=== PATIENT | female | born 1940 | race Caucasian/White ===

== ENCOUNTER → 2016-03-27 | Outpatient (REF) | payer MEDICARE ==
[~2016-03-27] MED LIST: ACET50TAOT PO; AMIT50TA PO; ASPI1TAB PO; AZIT500T2 PO; B-COTAB10 PO; CEFD1CAP8 PO; CITA40TA4 PO; FOLI800T PO; INSULANT SC; ISOS30TA4 PO; LASI40TA PO; MEST60TA PO; METF-415 PO; MIRA3350 PO; NORV5TAB PO; NOVO70IN SC; NOVOINJ12 SC; OMEP40CA2 PO; OXYB5TA PO; PRED50TA PO; SIMV20TA2 PO; VITA-122 PO; VITMTA PO; duoneb NEB
== END ==
LOC: M SMT 12:43
PROVIDERS: ATTEND Nurse Practitioner Family
DX: N20.0 Calculus of kidney (principal)
CPT/HCPCS: 51798; 81001; 87086; G0463

== ENCOUNTER 2017-05-23 12:40 | Inpatient (IN) | payer OTHER, MEDICARE ==
[2017-05-23 14:01] LABS: BASO % 0.2 % (0.0-1.0); EOS # 0.1 10^3/uL (0.0-0.50); EOS % 0.5 % (0.0-3.0); HEMATOCRIT 29.2 % (36.0-47.0); HEMOGLOBIN 7.4 g/dl (12.0-16.0); IMMATURE GRANULOCYTE % 1.1 % (0-3.0); LYMPH # 1.4 10^3/uL (1.5-4.5); LYMPH % 7.5 % (24.0-44.0); MEAN CORPUSCULAR HEMOGLOBIN 16.6 pg (27.0-33.0); MEAN CORPUSCULAR HGB CONC 25.3 g/dl (32.0-36.5); MEAN CORPUSCULAR VOLUME 65.3 fl (80.0-96.0); MONO # 1.3 10^3/uL (0.0-0.8); MONO % 6.7 % (0.0-5.0); NEUTROPHILS # 15.8 10^3/uL (1.8-7.7); PLATELET COUNT, AUTOMATED 552 10^3/uL (150-450); RED BLOOD COUNT 4.47 10^6/uL (4.00-5.40); RED CELL DISTRIBUTION WIDTH 19.2 % (11.5-14.5); WHITE BLOOD COUNT 18.9 10^3/uL (4.0-10.0)
[2017-05-23 14:12] LABS: INR 0.93; PROTHROMBIN TIME 12.5 SECONDS (12.4-14.5)
[2017-05-23 14:13] LABS: PARTIAL THROMBOPLASTIN TIME 23.5 SECONDS (26.8-37.9)
[2017-05-23 14:14] LABS: ALKALINE PHOSPHATASE 283 U/L (45-117); ALT/SGPT 53 U/L (12-78); ANION GAP 11 MEQ/L (8-16); AST/SGOT 28 U/L (7-37); BLOOD UREA NITROGEN 18 MG/DL (7-18); CARBON DIOXIDE LEVEL 27 MEQ/L (21-32); CHLORIDE LEVEL 96 MEQ/L (98-107); CPK CREATINE PHOSPHOKINASE 21 U/L (26-192); CREATININE FOR GFR 1.08 MG/DL (0.55-1.30); GLOMERULAR FILTRATION RATE 52.5 (>39); GLUCOSE, FASTING 389 MG/DL (70-100); SODIUM LEVEL 134 MEQ/L (136-145)
[2017-05-23 14:15] LABS: ALBUMIN 3.2 GM/DL (3.2-5.2); ALBUMIN/GLOBULIN RATIO 0.78 (1.00-1.93); BILIRUBIN,DIRECT 0.1 MG/DL (0.0-0.2); BILIRUBIN,TOTAL 0.4 MG/DL (0.2-1.0); CK-MB VALUE MASS 1.3 NG/ML (0.0-3.6); LIPASE 159 U/L (73-393); MB/CK RELATIVE INDEX 6.19 (< OR =4); TOTAL PROTEIN 7.3 GM/DL (6.4-8.2); TROPONIN I 0.09 NG/ML (< 0.10)
[2017-05-23 14:16] LABS: LACTIC ACID SEPSIS PROTOCOL 7.5 MMOL/L (0.4-2.0)
[2017-05-23 15:06] LABS: DIGOXIN LEVEL 0.6 NG/ML (0.5-2.0)
[2017-05-23] MEDS: NS 1,000 ML IV ×2 (15:14→22:35)
[2017-05-23] MEDS: GASTROGRAFIN SOLUTION 30ML PO ×2 (16:15→16:18)
[2017-05-23] MEDS ORDERED: ISOVUE-370 76% 100ML VIAL (Q9967) As Ordered (17:17)
[2017-05-23] MEDS: ATORVASTATIN 20 MG TAB PO (21:00)
[2017-05-23] MEDS ORDERED: ONDANSETRON 4 MG TAB (S0181) PO (23:45)
[2017-05-24 00:37] LABS: FERRITIN 16 NG/ML (8-252); IRON (FE) 13 UG/DL (50-170); PERCENT SATURATION 2.8 % (13.2-45.0); TOTAL IRON BINDING CAPACITY 465 UG/DL (250-450)
[2017-05-24 02:42] LABS: BEDSIDE GLUCOSE 385 MG/DL (83-110)
[2017-05-24] MEDS: LEVEMIR (INSULIN DETEMIR) 1 UNITS/0.01ML SC ×3 (02:46→20:27)
[2017-05-24] MEDS: GABAPENTIN 400 MG CAP PO ×3 (02:47→20:25)
[2017-05-24] MEDS: AMITRIPTYLINE 50 MG TAB PO ×2 (02:48→20:25)
[2017-05-24] MEDS: VITAMIN D 1,000 INTERNATIONAL UNITS TABLET PO ×2 (02:49→20:25)
[2017-05-24] MEDS: MULTIVITAMINS/MINERALS THERAP 1 TAB PO ×2 (02:49→20:25)
[2017-05-24] MEDS: HumaLOG INSULIN (NovoLOG) PER UNIT SC ×5 (03:12→20:27)
[2017-05-24 04:10] LABS: IMMEDIATE SPIN CROSSMATCH 1 2
[2017-05-24] MEDS: NS 1,000 ML IV ×4 (04:34→23:20)
[2017-05-24 08:07] LABS: HEMATOCRIT 34.7 % (36.0-47.0); MEAN CORPUSCULAR HEMOGLOBIN 19.2 pg (27.0-33.0); MEAN CORPUSCULAR VOLUME 68.8 fl (80.0-96.0); PLATELET COUNT, AUTOMATED 432 10^3/uL (150-450); RED CELL DISTRIBUTION WIDTH 22.6 % (11.5-14.5); RETICULOCYTE # 75.6 10^9/L (17-77); RETICULOCYTE % 1.5 % (0.5-1.5); WHITE BLOOD COUNT 13.2 10^3/uL (4.0-10.0)
[2017-05-24] MEDS: SENOKOT S TAB PO ×2 (08:11→20:25)
[2017-05-24] MEDS: DOCUSATE SODIUM 100 MG CAP PO (08:11)
[2017-05-24] MEDS: DULoxetine 30 MG CAP (CYMBALTA) PO (08:11)
[2017-05-24] MEDS: PANTOPRAZOLE 40MG TAB (PROTONIX) PO (08:11)
[2017-05-24 08:29] LABS: POSITIVE MORPH POS FLAG
[2017-05-24 08:31] LABS: HEMOGLOBIN 9.7 g/dl (12.0-16.0); RED BLOOD COUNT 5.04 10^6/uL (4.00-5.40)
[2017-05-24 08:32] LABS: REASON FOR REVIEW ANEMIA / RBC MORPH; SLIDE REVIEW Report; SOURCE PERIPHERAL SMEAR
[2017-05-24] MEDS ORDERED: FUROSEMIDE 40 MG TAB PO (09:00)
[2017-05-24] MEDS ORDERED: SPIRONOLACTONE 25 MG TAB PO (09:00)
[2017-05-24] MEDS: DIGOXIN 0.125 MG TAB PO (10:23)
[2017-05-24] MEDS: MIDODRINE 5 MG TAB PO ×3 (10:23→18:02)
[2017-05-24] MEDS: oxyBUTYnin 5 MG TAB PO (10:24)
[2017-05-24 10:29] LABS: ANION GAP 10 MEQ/L (8-16); BLOOD UREA NITROGEN 21 MG/DL (7-18); CALCIUM LEVEL 8.6 MG/DL (8.8-10.2); CARBON DIOXIDE LEVEL 29 MEQ/L (21-32); CHLORIDE LEVEL 102 MEQ/L (98-107); CREATININE FOR GFR 0.86 MG/DL (0.55-1.30); FOLATE > 24.0 NG/ML (>5.4); GLOMERULAR FILTRATION RATE > 60.0 (>39); GLUCOSE, FASTING 190 MG/DL (70-100); POTASSIUM SERUM 3.7 MEQ/L (3.5-5.1); SODIUM LEVEL 141 MEQ/L (136-145); TROPONIN I 0.06 NG/ML (< 0.10); VITAMIN B12 LEVEL 793 PG/ML (247-911)
[2017-05-24 11:24] LABS: HEMATOCRIT 29.9 % (36.0-47.0); HEMOGLOBIN 8.3 g/dl (12.0-16.0)
[2017-05-24 13:10] LABS: LACTIC ACID SEPSIS PROTOCOL 3.1 MMOL/L (0.4-2.0)
[2017-05-24 14:14] LABS: BEDSIDE GLUCOSE 295 MG/DL (83-110)
[2017-05-24 14:14] LABS: BEDSIDE GLUCOSE 246 MG/DL (83-110)
[2017-05-24 14:26] LABS: HEMATOCRIT 29.8 % (36.0-47.0); HEMOGLOBIN 8.4 g/dl (12.0-16.0)
[2017-05-24 17:22] LABS: BEDSIDE GLUCOSE 195 MG/DL (83-110)
[2017-05-24 18:18] LABS: IMMEDIATE SPIN CROSSMATCH 1 2
[2017-05-24] MEDS: NORCO, ANEXSIA 5/325MG TABLET (HYDROcodone/ACETAMINOPHEN) PO (18:40)
[2017-05-24 20:06] LABS: BEDSIDE GLUCOSE 266 MG/DL (83-110)
[2017-05-24] MEDS: ATORVASTATIN 20 MG TAB PO (20:25)
[2017-05-24] MEDS: predniSONE 20 MG TAB PO (23:20)
[2017-05-25 00:28] LABS: HEMATOCRIT 34.8 % (36.0-47.0); HEMOGLOBIN 10.1 g/dl (12.0-16.0)
[2017-05-25] MEDS: NORCO, ANEXSIA 5/325MG TABLET (HYDROcodone/ACETAMINOPHEN) PO ×4 (01:52→18:23)
[2017-05-25] MEDS: NS 1,000 ML IV (01:53)
[2017-05-25 05:14] LABS: HEMATOCRIT 36.2 % (36.0-47.0); HEMOGLOBIN 10.7 g/dl (12.0-16.0); MEAN CORPUSCULAR HEMOGLOBIN 20.7 pg (27.0-33.0); MEAN CORPUSCULAR HGB CONC 29.6 g/dl (32.0-36.5); PLATELET COUNT, AUTOMATED 366 10^3/uL (150-450); RED BLOOD COUNT 5.17 10^6/uL (4.00-5.40); RED CELL DISTRIBUTION WIDTH 23.8 % (11.5-14.5); WHITE BLOOD COUNT 13.6 10^3/uL (4.0-10.0)
[2017-05-25 05:25] LABS: ANION GAP 7 MEQ/L (8-16); BLOOD UREA NITROGEN 12 MG/DL (7-18); CALCIUM LEVEL 7.8 MG/DL (8.8-10.2); CARBON DIOXIDE LEVEL 27 MEQ/L (21-32); CHLORIDE LEVEL 106 MEQ/L (98-107); CREATININE FOR GFR 0.63 MG/DL (0.55-1.30); GLOMERULAR FILTRATION RATE > 60.0 (>39); GLUCOSE, FASTING 262 MG/DL (70-100); POTASSIUM SERUM 4.1 MEQ/L (3.5-5.1); SODIUM LEVEL 140 MEQ/L (136-145)
[2017-05-25] MEDS: predniSONE 10 MG TAB PO ×5 (07:40→21:26)
[2017-05-25 07:52] LABS: LACTIC ACID SEPSIS PROTOCOL 1.1 MMOL/L (0.4-2.0)
[2017-05-25] MEDS: GABAPENTIN 400 MG CAP PO ×2 (08:38→21:26)
[2017-05-25] MEDS: PANTOPRAZOLE 40MG TAB (PROTONIX) PO (08:38)
[2017-05-25] MEDS: MIDODRINE 5 MG TAB PO ×3 (08:38→18:21)
[2017-05-25] MEDS: DOCUSATE SODIUM 100 MG CAP PO (08:38)
[2017-05-25] MEDS: SENOKOT S TAB PO ×2 (08:38→21:26)
[2017-05-25] MEDS: DULoxetine 30 MG CAP (CYMBALTA) PO (08:39)
[2017-05-25] MEDS: oxyBUTYnin 5 MG TAB PO (08:39)
[2017-05-25] MEDS: LEVEMIR (INSULIN DETEMIR) 1 UNITS/0.01ML SC ×2 (08:41→21:33)
[2017-05-25] MEDS: DIGOXIN 0.125 MG TAB PO (08:43)
[2017-05-25] MEDS: MIRALAX *UNIT DOSE* 17GM PACKET PO (08:47)
[2017-05-25 09:55] LABS: KETONE, URINE AUTO RFX TRACE mg/dL (NEGATIVE); RBC, URINE AUTO RFX 1 /HPF (0-3); SPECIFIC GRAVITY UR AUTO RFX 1.014 (1.002-1.035); SQUAM EPITHELIAL CELL UR AURFX 0 /HPF (0-6)
[2017-05-25 10:08] LABS: LEUKOCYTE ESTERASE UR AUTO RFX TRACE (NEGATIVE); NITRITE, URINE AUTO RFX POSITIVE (NEGATIVE); WBC, URINE AUTO RFX 21 /HPF (0-3)
[2017-05-25] MEDS: HumaLOG INSULIN (NovoLOG) PER UNIT SC ×3 (12:00→21:39)
[2017-05-25 12:08] LABS: HEMATOCRIT 36.8 % (36.0-47.0); HEMOGLOBIN 10.9 g/dl (12.0-16.0)
[2017-05-25 12:18] LABS: BEDSIDE GLUCOSE 289 MG/DL (83-110)
[2017-05-25] MEDS ORDERED: PROPOFOL 200 MG/20 ML VIAL As Ordered (16:23)
[2017-05-25 17:34] LABS: BEDSIDE GLUCOSE 262 MG/DL (83-110)
[2017-05-25] MEDS: BISACODYL 5 MG TAB PO (18:23)
[2017-05-25] MEDS: VITAMIN D 1,000 INTERNATIONAL UNITS TABLET PO (21:26)
[2017-05-25] MEDS: AMITRIPTYLINE 50 MG TAB PO (21:26)
[2017-05-25] MEDS: ATORVASTATIN 20 MG TAB PO (21:26)
[2017-05-25] MEDS: MULTIVITAMINS/MINERALS THERAP 1 TAB PO (21:26)
[2017-05-25 21:42] LABS: BEDSIDE GLUCOSE 334 MG/DL (83-110)
[2017-05-25 23:11] LABS: HEMATOCRIT 36.2 % (36.0-47.0); HEMOGLOBIN 10.6 g/dl (12.0-16.0)
[2017-05-26] MEDS: NORCO, ANEXSIA 5/325MG TABLET (HYDROcodone/ACETAMINOPHEN) PO (03:53)
[2017-05-26 04:13] LABS: HEMATOCRIT 37.7 % (36.0-47.0); MEAN CORPUSCULAR HEMOGLOBIN 21.1 pg (27.0-33.0); MEAN CORPUSCULAR HGB CONC 29.2 g/dl (32.0-36.5); MEAN CORPUSCULAR VOLUME 72.2 fl (80.0-96.0); PLATELET COUNT, AUTOMATED 322 10^3/uL (150-450); RED BLOOD COUNT 5.22 10^6/uL (4.00-5.40); RED CELL DISTRIBUTION WIDTH 24.3 % (11.5-14.5); WHITE BLOOD COUNT 12.4 10^3/uL (4.0-10.0)
[2017-05-26 04:38] LABS: ANION GAP 7 MEQ/L (8-16); BLOOD UREA NITROGEN 11 MG/DL (7-18); CALCIUM LEVEL 8.5 MG/DL (8.8-10.2); CARBON DIOXIDE LEVEL 26 MEQ/L (21-32); CHLORIDE LEVEL 106 MEQ/L (98-107); CREATININE FOR GFR 0.69 MG/DL (0.55-1.30); GLOMERULAR FILTRATION RATE > 60.0 (>39); GLUCOSE, FASTING 306 MG/DL (70-100); POTASSIUM SERUM 4.3 MEQ/L (3.5-5.1); SODIUM LEVEL 139 MEQ/L (136-145)
[2017-05-26] MEDS: HumaLOG INSULIN (NovoLOG) PER UNIT SC ×4 (07:54→21:00)
[2017-05-26] MEDS: predniSONE 10 MG TAB PO ×3 (09:44→21:11)
[2017-05-26] MEDS: DIGOXIN 0.125 MG TAB PO (09:44)
[2017-05-26] MEDS: LEVEMIR (INSULIN DETEMIR) 1 UNITS/0.01ML SC ×2 (09:44→21:12)
[2017-05-26] MEDS: oxyBUTYnin 5 MG TAB PO (09:44)
[2017-05-26] MEDS: SENOKOT S TAB PO ×2 (09:44→21:11)
[2017-05-26] MEDS: GABAPENTIN 400 MG CAP PO ×2 (09:44→21:12)
[2017-05-26] MEDS: MIDODRINE 5 MG TAB PO ×3 (09:45→17:04)
[2017-05-26] MEDS: DOCUSATE SODIUM 100 MG CAP PO (09:45)
[2017-05-26] MEDS: DULoxetine 30 MG CAP (CYMBALTA) PO (09:45)
[2017-05-26] MEDS: PANTOPRAZOLE 40MG TAB (PROTONIX) PO (09:46)
[2017-05-26 11:33] LABS: BEDSIDE GLUCOSE 321 MG/DL (83-110)
[2017-05-26] MEDS: GOLYTELY SOLN 4000 ML BTL PO (11:40)
[2017-05-26 16:52] LABS: BEDSIDE GLUCOSE 232 MG/DL (83-110)
[2017-05-26] MEDS: ATORVASTATIN 20 MG TAB PO (21:11)
[2017-05-26] MEDS: AMITRIPTYLINE 50 MG TAB PO (21:11)
[2017-05-26] MEDS: MULTIVITAMINS/MINERALS THERAP 1 TAB PO (21:12)
[2017-05-26] MEDS: VITAMIN D 1,000 INTERNATIONAL UNITS TABLET PO (21:12)
[2017-05-26 23:02] LABS: BEDSIDE GLUCOSE 167 MG/DL (83-110)
[2017-05-27 06:30] LABS: HEMATOCRIT 35.5 % (36.0-47.0); HEMOGLOBIN 10.4 g/dl (12.0-16.0); MEAN CORPUSCULAR HEMOGLOBIN 21.2 pg (27.0-33.0); MEAN CORPUSCULAR HGB CONC 29.3 g/dl (32.0-36.5); MEAN CORPUSCULAR VOLUME 72.3 fl (80.0-96.0); PLATELET COUNT, AUTOMATED 291 10^3/uL (150-450); RED BLOOD COUNT 4.91 10^6/uL (4.00-5.40); RED CELL DISTRIBUTION WIDTH 25.3 % (11.5-14.5); WHITE BLOOD COUNT 9.2 10^3/uL (4.0-10.0)
[2017-05-27 06:46] LABS: ANION GAP 7 MEQ/L (8-16); BLOOD UREA NITROGEN 7 MG/DL (7-18); CALCIUM LEVEL 8.5 MG/DL (8.8-10.2); CARBON DIOXIDE LEVEL 29 MEQ/L (21-32); CHLORIDE LEVEL 108 MEQ/L (98-107); CREATININE FOR GFR 0.72 MG/DL (0.55-1.30); GLOMERULAR FILTRATION RATE > 60.0 (>39); GLUCOSE, FASTING 157 MG/DL (70-100); POTASSIUM SERUM 3.5 MEQ/L (3.5-5.1); SODIUM LEVEL 144 MEQ/L (136-145)
[2017-05-27] MEDS: HumaLOG INSULIN (NovoLOG) PER UNIT SC ×4 (07:30→20:54)
[2017-05-27] MEDS: SENOKOT S TAB PO ×2 (09:00→20:53)
[2017-05-27] MEDS: DOCUSATE SODIUM 100 MG CAP PO (09:00)
[2017-05-27] MEDS ORDERED: LIDOCAINE 2% INJ 100 MG/5 ML SDV (FOR ANES.) As Ordered (09:22)
[2017-05-27] MEDS ORDERED: PROPOFOL 200 MG/20 ML VIAL As Ordered (09:22)
[2017-05-27] MEDS: LR 1,000 ML IV (09:30)
[2017-05-27] MEDS: DIGOXIN 0.125 MG TAB PO (11:23)
[2017-05-27] MEDS: oxyBUTYnin 5 MG TAB PO (11:23)
[2017-05-27] MEDS: predniSONE 10 MG TAB PO ×3 (11:23→20:54)
[2017-05-27] MEDS: PANTOPRAZOLE 40MG TAB (PROTONIX) PO (11:24)
[2017-05-27] MEDS: DULoxetine 30 MG CAP (CYMBALTA) PO (11:24)
[2017-05-27] MEDS: MIDODRINE 5 MG TAB PO ×3 (11:24→16:08)
[2017-05-27] MEDS: GABAPENTIN 400 MG CAP PO ×2 (11:25→20:54)
[2017-05-27] MEDS: CEFDINIR 300 MG CAP (OMNICEF) PO ×2 (11:25→20:53)
[2017-05-27] MEDS: LEVEMIR (INSULIN DETEMIR) 1 UNITS/0.01ML SC ×2 (11:26→20:55)
[2017-05-27] MEDS: NORCO, ANEXSIA 5/325MG TABLET (HYDROcodone/ACETAMINOPHEN) PO ×2 (11:26→17:21)
[2017-05-27] MEDS: VITAMIN D 1,000 INTERNATIONAL UNITS TABLET PO (20:53)
[2017-05-27] MEDS: ATORVASTATIN 20 MG TAB PO (20:53)
[2017-05-27] MEDS: MULTIVITAMINS/MINERALS THERAP 1 TAB PO (20:53)
[2017-05-27] MEDS: AMITRIPTYLINE 50 MG TAB PO (20:53)
[2017-05-27] MEDS: FERROUS GLUCONATE 324 MG TAB PO (20:54)
[2017-05-27] MEDS: amLODIPine 10 MG TAB PO (22:05)
[2017-05-28 02:55] LABS: BEDSIDE GLUCOSE 379 MG/DL (83-110)
[2017-05-28 02:55] LABS: BEDSIDE GLUCOSE 142 MG/DL (83-110)
[2017-05-28 02:55] LABS: BEDSIDE GLUCOSE 370 MG/DL (83-110)
[2017-05-28 06:45] LABS: HEMATOCRIT 35.5 % (36.0-47.0); HEMOGLOBIN 10.6 g/dl (12.0-16.0); MEAN CORPUSCULAR HEMOGLOBIN 21.7 pg (27.0-33.0); MEAN CORPUSCULAR HGB CONC 29.9 g/dl (32.0-36.5); MEAN CORPUSCULAR VOLUME 72.7 fl (80.0-96.0); PLATELET COUNT, AUTOMATED 269 10^3/uL (150-450); RED BLOOD COUNT 4.88 10^6/uL (4.00-5.40); RED CELL DISTRIBUTION WIDTH 25.6 % (11.5-14.5); WHITE BLOOD COUNT 9.2 10^3/uL (4.0-10.0)
[2017-05-28 07:12] LABS: ANION GAP 7 MEQ/L (8-16); BLOOD UREA NITROGEN 8 MG/DL (7-18); CALCIUM LEVEL 8.7 MG/DL (8.8-10.2); CARBON DIOXIDE LEVEL 29 MEQ/L (21-32); CHLORIDE LEVEL 103 MEQ/L (98-107); CREATININE FOR GFR 0.68 MG/DL (0.55-1.30); GLOMERULAR FILTRATION RATE > 60.0 (>39); GLUCOSE, FASTING 360 MG/DL (70-100); POTASSIUM SERUM 4.1 MEQ/L (3.5-5.1); SODIUM LEVEL 139 MEQ/L (136-145)
[2017-05-28] MEDS: LEVEMIR (INSULIN DETEMIR) 1 UNITS/0.01ML SC ×2 (08:34→20:54)
[2017-05-28] MEDS: HumaLOG INSULIN (NovoLOG) PER UNIT SC ×4 (08:36→20:52)
[2017-05-28] MEDS: FERROUS GLUCONATE 324 MG TAB PO ×2 (08:36→20:51)
[2017-05-28] MEDS: DIGOXIN 0.125 MG TAB PO (08:37)
[2017-05-28] MEDS: amLODIPine 10 MG TAB PO (08:37)
[2017-05-28] MEDS: MIDODRINE 5 MG TAB PO ×3 (08:37→16:16)
[2017-05-28] MEDS: CEFDINIR 300 MG CAP (OMNICEF) PO ×2 (08:37→20:51)
[2017-05-28] MEDS: DULoxetine 30 MG CAP (CYMBALTA) PO (08:37)
[2017-05-28] MEDS: predniSONE 10 MG TAB PO ×3 (08:38→20:51)
[2017-05-28] MEDS: PANTOPRAZOLE 40MG TAB (PROTONIX) PO (08:38)
[2017-05-28] MEDS: oxyBUTYnin 5 MG TAB PO (08:38)
[2017-05-28] MEDS: GABAPENTIN 400 MG CAP PO ×2 (08:38→20:51)
[2017-05-28] MEDS: DOCUSATE SODIUM 100 MG CAP PO (08:38)
[2017-05-28] MEDS: SENOKOT S TAB PO ×2 (08:38→20:51)
[2017-05-28] MEDS: NORCO, ANEXSIA 5/325MG TABLET (HYDROcodone/ACETAMINOPHEN) PO ×2 (08:41→16:57)
[2017-05-28] MEDS: BISACODYL 5 MG TAB PO (20:51)
[2017-05-28] MEDS: VITAMIN D 1,000 INTERNATIONAL UNITS TABLET PO (20:51)
[2017-05-28] MEDS: AMITRIPTYLINE 50 MG TAB PO (20:51)
[2017-05-28] MEDS: ATORVASTATIN 20 MG TAB PO (20:51)
[2017-05-28] MEDS: MULTIVITAMINS/MINERALS THERAP 1 TAB PO (20:51)
[2017-05-29 06:10] LABS: HEMATOCRIT 36.5 % (36.0-47.0); HEMOGLOBIN 10.6 g/dl (12.0-16.0); MEAN CORPUSCULAR VOLUME 72.4 fl (80.0-96.0); PLATELET COUNT, AUTOMATED 284 10^3/uL (150-450); RED BLOOD COUNT 5.04 10^6/uL (4.00-5.40); RED CELL DISTRIBUTION WIDTH 25.3 % (11.5-14.5); WHITE BLOOD COUNT 9.2 10^3/uL (4.0-10.0)
[2017-05-29 06:26] LABS: ANION GAP 6 MEQ/L (8-16); BLOOD UREA NITROGEN 13 MG/DL (7-18); CALCIUM LEVEL 8.9 MG/DL (8.8-10.2); CARBON DIOXIDE LEVEL 30 MEQ/L (21-32); CHLORIDE LEVEL 101 MEQ/L (98-107); CREATININE FOR GFR 0.71 MG/DL (0.55-1.30); GLOMERULAR FILTRATION RATE > 60.0 (>39); GLUCOSE, FASTING 338 MG/DL (70-100); POTASSIUM SERUM 4.1 MEQ/L (3.5-5.1); SODIUM LEVEL 137 MEQ/L (136-145)
[2017-05-29] MEDS: MIDODRINE 5 MG TAB PO ×3 (07:57→17:33)
[2017-05-29] MEDS: oxyBUTYnin 5 MG TAB PO (07:58)
[2017-05-29] MEDS: FERROUS GLUCONATE 324 MG TAB PO ×2 (07:58→20:08)
[2017-05-29] MEDS: HumaLOG INSULIN (NovoLOG) PER UNIT SC ×4 (07:58→20:09)
[2017-05-29] MEDS: LEVEMIR (INSULIN DETEMIR) 1 UNITS/0.01ML SC ×2 (07:59→20:09)
[2017-05-29] MEDS: predniSONE 10 MG TAB PO ×3 (07:59→20:08)
[2017-05-29] MEDS: DIGOXIN 0.125 MG TAB PO (07:59)
[2017-05-29] MEDS: amLODIPine 10 MG TAB PO (08:00)
[2017-05-29] MEDS: DOCUSATE SODIUM 100 MG CAP PO (08:00)
[2017-05-29] MEDS: SENOKOT S TAB PO ×2 (08:00→20:08)
[2017-05-29] MEDS: PANTOPRAZOLE 40MG TAB (PROTONIX) PO (08:00)
[2017-05-29] MEDS: GABAPENTIN 400 MG CAP PO ×2 (08:00→20:07)
[2017-05-29] MEDS: DULoxetine 30 MG CAP (CYMBALTA) PO (08:00)
[2017-05-29] MEDS: NORCO, ANEXSIA 5/325MG TABLET (HYDROcodone/ACETAMINOPHEN) PO ×2 (08:01→20:09)
[2017-05-29] MEDS: CEFDINIR 300 MG CAP (OMNICEF) PO ×2 (08:02→20:08)
[2017-05-29] MEDS: MULTIVITAMINS/MINERALS THERAP 1 TAB PO (20:07)
[2017-05-29] MEDS: ATORVASTATIN 20 MG TAB PO (20:08)
[2017-05-29] MEDS: VITAMIN D 1,000 INTERNATIONAL UNITS TABLET PO (20:08)
[2017-05-29] MEDS: AMITRIPTYLINE 50 MG TAB PO (20:08)
[2017-05-30] MEDS: DIGOXIN 0.125 MG TAB PO (08:33)
[2017-05-30] MEDS: HumaLOG INSULIN (NovoLOG) PER UNIT SC (08:33)
[2017-05-30] MEDS: LEVEMIR (INSULIN DETEMIR) 1 UNITS/0.01ML SC (08:33)
[2017-05-30] MEDS: DULoxetine 30 MG CAP (CYMBALTA) PO (08:34)
[2017-05-30] MEDS: amLODIPine 10 MG TAB PO (08:34)
[2017-05-30] MEDS: PANTOPRAZOLE 40MG TAB (PROTONIX) PO (08:34)
[2017-05-30] MEDS: GABAPENTIN 400 MG CAP PO (08:34)
[2017-05-30] MEDS: CEFDINIR 300 MG CAP (OMNICEF) PO (08:34)
[2017-05-30] MEDS: MIDODRINE 5 MG TAB PO (08:34)
[2017-05-30] MEDS: DOCUSATE SODIUM 100 MG CAP PO (08:34)
[2017-05-30] MEDS: FERROUS GLUCONATE 324 MG TAB PO (08:34)
[2017-05-30] MEDS: oxyBUTYnin 5 MG TAB PO (08:34)
[2017-05-30] MEDS: predniSONE 10 MG TAB PO (08:34)
[2017-05-30] MEDS: SENOKOT S TAB PO (08:35)
[2017-05-30] MEDS: MIRALAX *UNIT DOSE* 17GM PACKET PO (09:32)
[2017-05-30] MEDS: BISACODYL 5 MG TAB PO (09:32)
[2017-05-30 13:00] LABS: BEDSIDE GLUCOSE 421 MG/DL (83-110)
[2017-05-30 13:00] LABS: BEDSIDE GLUCOSE 411 MG/DL (83-110)
[2017-05-30 13:01] LABS: BEDSIDE GLUCOSE 408 MG/DL (83-110)
[2017-05-30 13:02] LABS: BEDSIDE GLUCOSE 381 MG/DL (83-110)
[2017-05-30 13:02] LABS: BEDSIDE GLUCOSE 485 MG/DL (83-110)
[2017-05-30 13:02] LABS: BEDSIDE GLUCOSE 401 MG/DL (83-110)
[2017-05-30 13:02] LABS: BEDSIDE GLUCOSE 381 MG/DL (83-110)
[2017-05-30 13:02] LABS: BEDSIDE GLUCOSE 426 MG/DL (83-110)
== END 2017-05-30 11:03 | DRG 812 ==
LOC: M ED INP 05-24 00:39 → M MS5PR 05-26 17:32 → M PCU 05-24 15:00 → M ED 12:40 → M MS5PR 05-28 10:16
PROC: 0DJ08ZZ Inspection of Upper Intestinal Tract, Via Natural or Artificial Opening Endoscopic (ICD-10-PCS; principal; 2017-05-25 16:00)
PROC: 0DBQ8ZX Excision of Anus, Via Natural or Artificial Opening Endoscopic, Diagnostic (ICD-10-PCS; 2017-05-25 16:08)
PROC: 0W3P8ZZ Control Bleeding in Gastrointestinal Tract, Via Natural or Artificial Opening Endoscopic (ICD-10-PCS; 2017-05-25 16:08)
PROC: 30233N1 Transfusion of Nonautologous Red Blood Cells into Peripheral Vein, Percutaneous Approach (ICD-10-PCS; 2017-05-25 16:08)
DX: D50.9 Iron deficiency anemia, unspecified (principal); E87.2 Acidosis; E87.1 Hypo-osmolality and hyponatremia; N39.0 Urinary tract infection, site not specified; K86.2 Cyst of pancreas; R10.9 Unspecified abdominal pain; K64.4 Residual hemorrhoidal skin tags; M31.6 Other giant cell arteritis; K29.70 Gastritis, unspecified, without bleeding; E11.9 Type 2 diabetes mellitus without complications; E86.1 Hypovolemia; E87.8 Other disorders of electrolyte and fluid balance, not elsewhere classified; G47.33 Obstructive sleep apnea (adult) (pediatric); G70.00 Myasthenia gravis without (acute) exacerbation; F03.90 Unspecified dementia, unspecified severity, without behavioral disturbance, psychotic disturbance, mood disturbance, and anxiety; Z91.19 Patient's noncompliance with other medical treatment and regimen; N32.81 Overactive bladder; Z95.0 Presence of cardiac pacemaker; Z79.899 Other long term (current) drug therapy; Z79.4 Long term (current) use of insulin; Z88.8 Allergy status to other drugs, medicaments and biological substances; Z79.82 Long term (current) use of aspirin; Z79.52 Long term (current) use of systemic steroids; I73.9 Peripheral vascular disease, unspecified; Z96.651 Presence of right artificial knee joint; Z96.652 Presence of left artificial knee joint; K57.30 Diverticulosis of large intestine without perforation or abscess without bleeding; K76.0 Fatty (change of) liver, not elsewhere classified; K21.9 Gastro-esophageal reflux disease without esophagitis; F39 Unspecified mood [affective] disorder; I95.9 Hypotension, unspecified; B96.29 Other Escherichia coli [E. coli] as the cause of diseases classified elsewhere; K62.0 Anal polyp

== ENCOUNTER → 2017-06-05 | Outpatient (REF) ==
[2017-06-05 10:21] LABS: HEMATOCRIT 40.5 % (36.0-47.0); HEMOGLOBIN 11.6 g/dl (12.0-16.0); MEAN CORPUSCULAR HEMOGLOBIN 21.6 pg (27.0-33.0); MEAN CORPUSCULAR HGB CONC 28.6 g/dl (32.0-36.5); MEAN CORPUSCULAR VOLUME 75.6 fl (80.0-96.0); PLATELET COUNT, AUTOMATED 358 10^3/uL (150-450); RED BLOOD COUNT 5.36 10^6/uL (4.00-5.40); WHITE BLOOD COUNT 12.9 10^3/uL (4.0-10.0)
[2017-06-05 10:42] LABS: POSITIVE MORPH POS FLAG
[2017-06-05 11:13] LABS: ERYTHROCYTE SEDIMENTATION RATE 21 mm/hr (0-30)
[2017-06-05 11:25] LABS: ANION GAP 10 MEQ/L (8-16); BLOOD UREA NITROGEN 15 MG/DL (7-18); C REACTIVE PROTEIN QUANTITATIV 0.33 MG/DL (0.00-0.30); CARBON DIOXIDE LEVEL 30 MEQ/L (21-32); CHLORIDE LEVEL 99 MEQ/L (98-107); CREATININE FOR GFR 0.88 MG/DL (0.55-1.30); DIGOXIN LEVEL 0.9 NG/ML (0.5-2.0); GLOMERULAR FILTRATION RATE > 60.0 (>39); GLUCOSE, FASTING 249 MG/DL (70-100); SODIUM LEVEL 139 MEQ/L (136-145)
== END ==
DX: D64.9 Anemia, unspecified (principal); I10 Essential (primary) hypertension

== ENCOUNTER → 2017-06-12 | Outpatient (REF) | payer MEDICARE, OTHER ==
[2017-06-12 09:43] LABS: HEMATOCRIT 40.1 % (36.0-47.0); HEMOGLOBIN 11.9 g/dl (12.0-16.0); MEAN CORPUSCULAR HEMOGLOBIN 22.5 pg (27.0-33.0); MEAN CORPUSCULAR HGB CONC 29.7 g/dl (32.0-36.5); MEAN CORPUSCULAR VOLUME 75.9 fl (80.0-96.0); PLATELET COUNT, AUTOMATED 413 10^3/uL (150-450); RED BLOOD COUNT 5.28 10^6/uL (4.00-5.40); WHITE BLOOD COUNT 14.4 10^3/uL (4.0-10.0)
[2017-06-12 09:46] LABS: POSITIVE MORPH POS FLAG
[2017-06-12 10:24] LABS: ANION GAP 9 MEQ/L (8-16); BLOOD UREA NITROGEN 19 MG/DL (7-18); CALCIUM LEVEL 9.3 MG/DL (8.8-10.2); CARBON DIOXIDE LEVEL 32 MEQ/L (21-32); CHLORIDE LEVEL 99 MEQ/L (98-107); CREATININE FOR GFR 0.86 MG/DL (0.55-1.30); DIGOXIN LEVEL 1.1 NG/ML (0.5-2.0); GLOMERULAR FILTRATION RATE > 60.0 (>39); GLUCOSE, FASTING 240 MG/DL (70-100); POTASSIUM SERUM 4.2 MEQ/L (3.5-5.1); SODIUM LEVEL 140 MEQ/L (136-145)
== END ==
DX: D64.9 Anemia, unspecified (principal); I10 Essential (primary) hypertension

== ENCOUNTER 2017-06-14 13:10 | Emergency (ER) | payer OTHER, MEDICARE ==
[2017-06-14 12:30] LABS: BASO # 0.1 10^3/uL (0.0-0.2); BASO % 0.5 % (0.0-1.0); EOS # 0.1 10^3/uL (0.0-0.50); EOS % 0.3 % (0.0-3.0); HEMATOCRIT 36.7 % (36.0-47.0); HEMOGLOBIN 11.1 g/dl (12.0-15.5); IMMATURE GRANULOCYTE % 2.5 % (0-3.0); LYMPH # 1.8 10^3/uL (1.5-4.5); LYMPH % 10.2 % (24.0-44.0); MEAN CORPUSCULAR HEMOGLOBIN 23.4 pg (27.0-33.0); MEAN CORPUSCULAR HGB CONC 30.2 g/dl (32.0-36.5); MEAN CORPUSCULAR VOLUME 77.3 fl (80.0-96.0); MONO % 5.8 % (0.0-5.0); NEUTROPHILS # 13.9 10^3/uL (1.8-7.7); NEUTROPHILS % 80.7 % (36.0-66.0); PLATELET COUNT, AUTOMATED 336 10^3/uL (150-450); RED BLOOD COUNT 4.75 10^6/uL (4.00-5.40); RED CELL DISTRIBUTION WIDTH 25.7 % (11.5-14.5); WHITE BLOOD COUNT 17.2 10^3/uL (4.0-10.0)
[2017-06-14] MEDS: NS 1,000 ML IV (12:33)
[2017-06-14 12:34] LABS: INR 0.89; PROTHROMBIN TIME 12.1 SECONDS (12.4-14.5)
[2017-06-14 12:44] LABS: ANION GAP 7 MEQ/L (8-16); BLOOD UREA NITROGEN 21 MG/DL (7-18); CALCIUM LEVEL 9.4 MG/DL (8.8-10.2); CARBON DIOXIDE LEVEL 33 MEQ/L (21-32); CHLORIDE LEVEL 97 MEQ/L (98-107); CPK CREATINE PHOSPHOKINASE 28 U/L (26-192); CREATININE FOR GFR 1.07 MG/DL (0.55-1.30); GLOMERULAR FILTRATION RATE 53.1 (>39); GLUCOSE, FASTING 343 MG/DL (70-100); POTASSIUM SERUM 4.2 MEQ/L (3.5-5.1); SODIUM LEVEL 137 MEQ/L (136-145); TROPONIN I 0.02 NG/ML (< 0.10)
[2017-06-14 12:45] LABS: CK-MB VALUE MASS 1.3 NG/ML (<3.6); MB/CK RELATIVE INDEX 4.64 (< OR =4)
== END 2017-06-14 14:13 | disposition home or self-care (01) ==
LOC: M ED 13:10
DX: R07.89 Other chest pain (principal); E11.9 Type 2 diabetes mellitus without complications; I10 Essential (primary) hypertension; E78.5 Hyperlipidemia, unspecified; I25.10 Atherosclerotic heart disease of native coronary artery without angina pectoris; Z95.0 Presence of cardiac pacemaker; Z82.49 Family history of ischemic heart disease and other diseases of the circulatory system; Z79.899 Other long term (current) drug therapy; Z79.82 Long term (current) use of aspirin; Z79.4 Long term (current) use of insulin; Z88.8 Allergy status to other drugs, medicaments and biological substances; Z87.891 Personal history of nicotine dependence
CPT/HCPCS: 71045

== ENCOUNTER → 2017-06-19 | Outpatient (REF) ==
[2017-06-19 10:00] LABS: HEMATOCRIT 39.9 % (36.0-47.0); HEMOGLOBIN 11.8 g/dl (12.0-15.5); MEAN CORPUSCULAR HEMOGLOBIN 22.9 pg (27.0-33.0); MEAN CORPUSCULAR HGB CONC 29.6 g/dl (32.0-36.5); MEAN CORPUSCULAR VOLUME 77.3 fl (80.0-96.0); PLATELET COUNT, AUTOMATED 263 10^3/uL (150-450); RED BLOOD COUNT 5.16 10^6/uL (4.00-5.40); RED CELL DISTRIBUTION WIDTH 25.8 % (11.5-14.5); WHITE BLOOD COUNT 14.9 10^3/uL (4.0-10.0)
[2017-06-19 10:45] LABS: ANION GAP 9 MEQ/L (8-16); BLOOD UREA NITROGEN 22 MG/DL (7-18); CALCIUM LEVEL 9.4 MG/DL (8.8-10.2); CARBON DIOXIDE LEVEL 31 MEQ/L (21-32); CHLORIDE LEVEL 97 MEQ/L (98-107); CREATININE FOR GFR 1.05 MG/DL (0.55-1.30); DIGOXIN LEVEL 0.9 NG/ML (0.5-2.0); GLOMERULAR FILTRATION RATE 54.2 (>39); GLUCOSE, FASTING 246 MG/DL (70-100); POTASSIUM SERUM 4.4 MEQ/L (3.5-5.1); SODIUM LEVEL 137 MEQ/L (136-145)
== END ==
DX: D64.9 Anemia, unspecified (principal); I10 Essential (primary) hypertension

== ENCOUNTER 2017-07-02 12:32 | Outpatient (REF) ==
[2017-07-03 11:29] LABS: ESTIMATED AVERAGE GLUCOSE 197 MG/DL (60-110); HEMOGLOBIN A1c 8.5 %
[2017-07-03 11:33] LABS: IRON (FE) 35 UG/DL (50-170); PERCENT SATURATION 8.9 % (13.2-45.0); TOTAL IRON BINDING CAPACITY 392 UG/DL (250-450)
== END 2017-07-03 ==
DX: D64.9 Anemia, unspecified (principal)

== ENCOUNTER → 2017-07-10 | Outpatient (REF) ==
[2017-07-10 10:41] LABS: HEMATOCRIT 33.7 % (36.0-47.0); HEMOGLOBIN 10.2 g/dl (12.0-15.5); MEAN CORPUSCULAR HEMOGLOBIN 24.2 pg (27.0-33.0); MEAN CORPUSCULAR HGB CONC 30.3 g/dl (32.0-36.5); MEAN CORPUSCULAR VOLUME 79.9 fl (80.0-96.0); PLATELET COUNT, AUTOMATED 328 10^3/uL (150-450); RED BLOOD COUNT 4.22 10^6/uL (4.00-5.40); RED CELL DISTRIBUTION WIDTH 21.7 % (11.5-14.5); WHITE BLOOD COUNT 9.8 10^3/uL (4.0-10.0)
[2017-07-10 11:59] LABS: ANION GAP 11 MEQ/L (8-16); BLOOD UREA NITROGEN 20 MG/DL (7-18); CALCIUM LEVEL 9.2 MG/DL (8.8-10.2); CARBON DIOXIDE LEVEL 28 MEQ/L (21-32); CHLORIDE LEVEL 100 MEQ/L (98-107); CREATININE FOR GFR 0.97 MG/DL (0.55-1.30); DIGOXIN LEVEL 0.6 NG/ML (0.5-2.0); GLOMERULAR FILTRATION RATE 59.4 (>39); GLUCOSE, FASTING 271 MG/DL (70-100); SODIUM LEVEL 139 MEQ/L (136-145)
== END ==
DX: D64.9 Anemia, unspecified (principal); I10 Essential (primary) hypertension

== ENCOUNTER → 2017-08-07 | Outpatient (REF) | payer OTHER ==
[2017-08-07 11:53] LABS: HEMATOCRIT 35.1 % (36.0-47.0); HEMOGLOBIN 10.3 g/dl (12.0-15.5); MEAN CORPUSCULAR HEMOGLOBIN 24.2 pg (27.0-33.0); MEAN CORPUSCULAR HGB CONC 29.3 g/dl (32.0-36.5); MEAN CORPUSCULAR VOLUME 82.6 fl (80.0-96.0); PLATELET COUNT, AUTOMATED 288 10^3/uL (150-450); RED BLOOD COUNT 4.25 10^6/uL (4.00-5.40); RED CELL DISTRIBUTION WIDTH 17.5 % (11.5-14.5); WHITE BLOOD COUNT 11.2 10^3/uL (4.0-10.0)
[2017-08-07 12:35] LABS: ANION GAP 10 MEQ/L (8-16); BLOOD UREA NITROGEN 19 MG/DL (7-18); CALCIUM LEVEL 9.1 MG/DL (8.8-10.2); CARBON DIOXIDE LEVEL 29 MEQ/L (21-32); CHLORIDE LEVEL 98 MEQ/L (98-107); CREATININE FOR GFR 0.91 MG/DL (0.55-1.30); GLOMERULAR FILTRATION RATE > 60.0 (>39); GLUCOSE, FASTING 366 MG/DL (70-100); POTASSIUM SERUM 4.3 MEQ/L (3.5-5.1); SODIUM LEVEL 137 MEQ/L (136-145)
== END ==
DX: D64.9 Anemia, unspecified (principal); I10 Essential (primary) hypertension
CPT/HCPCS: 80048

== ENCOUNTER → 2017-08-15 | Outpatient (REF) | payer OTHER ==
[2017-08-16 17:21] LABS: BLOOD UREA NITROGEN 18 MG/DL (7-18); CHLORIDE LEVEL 98 MEQ/L (98-107); CREATININE FOR GFR 0.94 MG/DL (0.55-1.30); GLOMERULAR FILTRATION RATE > 60.0 (>39); GLUCOSE, FASTING 331 MG/DL (70-100); SODIUM LEVEL 137 MEQ/L (136-145)
[2017-08-16 17:22] LABS: ANION GAP 8 MEQ/L (8-16); CALCIUM LEVEL 8.9 MG/DL (8.8-10.2); CARBON DIOXIDE LEVEL 31 MEQ/L (21-32)
[2017-08-16 17:37] LABS: HEMATOCRIT 35.9 % (36.0-47.0); HEMOGLOBIN 10.7 g/dl (12.0-15.5); MEAN CORPUSCULAR HEMOGLOBIN 24.5 pg (27.0-33.0); MEAN CORPUSCULAR HGB CONC 29.8 g/dl (32.0-36.5); MEAN CORPUSCULAR VOLUME 82.2 fl (80.0-96.0); RED BLOOD COUNT 4.37 10^6/uL (4.00-5.40); WHITE BLOOD COUNT 11.7 10^3/uL (4.0-10.0)
[2017-08-16 17:38] LABS: PLATELET COUNT, AUTOMATED 326 10^3/uL (150-450); RED CELL DISTRIBUTION WIDTH 16.4 % (11.5-14.5)
== END ==
LOC: M LAB 13:26
DX: I95.9 Hypotension, unspecified (principal)
CPT/HCPCS: 80048

== ENCOUNTER → 2017-08-21 | Outpatient (REF) | payer OTHER ==
[2017-08-21 10:25] LABS: C REACTIVE PROTEIN QUANTITATIV < 0.30 MG/DL (0.00-0.30); IRON (FE) 91 UG/DL (50-170); PERCENT SATURATION 21.2 % (13.2-45.0); TOTAL IRON BINDING CAPACITY 429 UG/DL (250-450)
[2017-08-21 10:58] LABS: ERYTHROCYTE SEDIMENTATION RATE 24 mm/hr (0-30)
== END ==
DX: D64.9 Anemia, unspecified (principal); M31.6 Other giant cell arteritis
CPT/HCPCS: 83550

== ENCOUNTER → 2017-08-27 | Outpatient (CLI) | payer OTHER | LOC: M RAD 11:42 | DX: M25.552 Pain in left hip (principal); Z53.8 Procedure and treatment not carried out for other reasons ==

== ENCOUNTER → 2017-08-27 | Outpatient (REF) | DX: R10.2 Pelvic and perineal pain (principal); M16.12 Unilateral primary osteoarthritis, left hip ==

== ENCOUNTER → 2017-08-28 | Outpatient (REF) | payer OTHER ==
[2017-08-28 09:45] LABS: HEMATOCRIT 37.7 % (36.0-47.0); HEMOGLOBIN 11.3 g/dl (12.0-15.5); MEAN CORPUSCULAR HEMOGLOBIN 24.2 pg (27.0-33.0); MEAN CORPUSCULAR VOLUME 80.7 fl (80.0-96.0); PLATELET COUNT, AUTOMATED 376 10^3/uL (150-450); RED BLOOD COUNT 4.67 10^6/uL (4.00-5.40); RED CELL DISTRIBUTION WIDTH 16.7 % (11.5-14.5); WHITE BLOOD COUNT 12.4 10^3/uL (4.0-10.0)
[2017-08-28 10:03] LABS: ANION GAP 6 MEQ/L (8-16); BLOOD UREA NITROGEN 14 MG/DL (7-18); CALCIUM LEVEL 9.2 MG/DL (8.8-10.2); CARBON DIOXIDE LEVEL 33 MEQ/L (21-32); CHLORIDE LEVEL 101 MEQ/L (98-107); CREATININE FOR GFR 0.85 MG/DL (0.55-1.30); GLOMERULAR FILTRATION RATE > 60.0 (>39); GLUCOSE, FASTING 208 MG/DL (70-100); POTASSIUM SERUM 4.3 MEQ/L (3.5-5.1); SODIUM LEVEL 140 MEQ/L (136-145)
== END ==
DX: M25.552 Pain in left hip (principal); M31.6 Other giant cell arteritis; D64.9 Anemia, unspecified
CPT/HCPCS: 80048

== ENCOUNTER 2017-08-30 11:46 | Emergency (ER) | payer OTHER, MEDICAID ==
[2017-08-30 13:06] LABS: BASO % 0.3 % (0.0-1.0); EOS % 0.2 % (0.0-3.0); HEMOGLOBIN 10.3 g/dl (12.0-15.5); IMMATURE GRANULOCYTE % 2.3 % (0-3.0); LYMPH # 1.3 10^3/uL (1.5-4.5); LYMPH % 10.6 % (24.0-44.0); MEAN CORPUSCULAR HEMOGLOBIN 24.2 pg (27.0-33.0); MEAN CORPUSCULAR HGB CONC 30.3 g/dl (32.0-36.5); MONO # 0.8 10^3/uL (0.0-0.8); NEUTROPHILS # 10.2 10^3/uL (1.8-7.7); NEUTROPHILS % 80.6 % (36.0-66.0); PLATELET COUNT, AUTOMATED 294 10^3/uL (150-450); RED BLOOD COUNT 4.25 10^6/uL (4.00-5.40); RED CELL DISTRIBUTION WIDTH 16.7 % (11.5-14.5); WHITE BLOOD COUNT 12.6 10^3/uL (4.0-10.0)
[2017-08-30 13:27] LABS: ANION GAP 6 MEQ/L (8-16); BLOOD UREA NITROGEN 20 MG/DL (7-18); CARBON DIOXIDE LEVEL 30 MEQ/L (21-32); CHLORIDE LEVEL 99 MEQ/L (98-107); CREATININE FOR GFR 0.97 MG/DL (0.55-1.30); GLOMERULAR FILTRATION RATE 59.4 (>39); GLUCOSE, FASTING 279 MG/DL (70-100); SODIUM LEVEL 135 MEQ/L (136-145)
[2017-08-30] MEDS: ACETAMINOPHEN TAB 650MG DOSE (2X325MG) PO (14:06)
[2017-08-30] MEDS: KETOROLAC 30 MG/ML VIAL (J1885) IV (14:07)
[2017-08-31 15:44] LABS: BEDSIDE GLUCOSE 324 MG/DL (83-110)
== END 2017-08-30 14:30 | disposition home or self-care (01) ==
LOC: M ED 11:46
DX: M54.9 Dorsalgia, unspecified (principal); I10 Essential (primary) hypertension; E11.9 Type 2 diabetes mellitus without complications; F41.9 Anxiety disorder, unspecified; K21.9 Gastro-esophageal reflux disease without esophagitis; M31.6 Other giant cell arteritis; Z95.0 Presence of cardiac pacemaker; Z79.899 Other long term (current) drug therapy; Z79.4 Long term (current) use of insulin; Z88.8 Allergy status to other drugs, medicaments and biological substances
CPT/HCPCS: J1885

== ENCOUNTER → 2017-09-04 | Outpatient (CLI) | payer OTHER, MEDICAID | LOC: M RAD 11:47 | DX: M85.88 Other specified disorders of bone density and structure, other site (principal); M16.12 Unilateral primary osteoarthritis, left hip; M25.752 Osteophyte, left hip; R10.2 Pelvic and perineal pain; M25.552 Pain in left hip | CPT/HCPCS: 72192 ==

== ENCOUNTER → 2017-09-11 | Outpatient (REF) | payer OTHER ==
[2017-09-11 12:00] LABS: HEMATOCRIT 36.3 % (36.0-47.0); HEMOGLOBIN 10.7 g/dl (12.0-15.5); MEAN CORPUSCULAR HEMOGLOBIN 24.2 pg (27.0-33.0); MEAN CORPUSCULAR HGB CONC 29.5 g/dl (32.0-36.5); MEAN CORPUSCULAR VOLUME 81.9 fl (80.0-96.0); PLATELET COUNT, AUTOMATED 274 10^3/uL (150-450); RED BLOOD COUNT 4.43 10^6/uL (4.00-5.40); WHITE BLOOD COUNT 10.3 10^3/uL (4.0-10.0)
[2017-09-11 12:36] LABS: ANION GAP 9 MEQ/L (8-16); BLOOD UREA NITROGEN 17 MG/DL (7-18); CALCIUM LEVEL 9.1 MG/DL (8.8-10.2); CARBON DIOXIDE LEVEL 32 MEQ/L (21-32); CHLORIDE LEVEL 99 MEQ/L (98-107); CREATININE FOR GFR 0.95 MG/DL (0.55-1.30); GLOMERULAR FILTRATION RATE > 60.0 (>39); GLUCOSE, FASTING 251 MG/DL (70-100); POTASSIUM SERUM 4.2 MEQ/L (3.5-5.1); SODIUM LEVEL 140 MEQ/L (136-145)
== END ==
DX: I10 Essential (primary) hypertension (principal)
CPT/HCPCS: 80048

== ENCOUNTER → 2017-10-10 | Outpatient (REF) | payer OTHER ==
[2017-10-10 10:35] LABS: HEMATOCRIT 38.7 % (36.0-47.0); HEMOGLOBIN 11.8 g/dl (12.0-15.5); MEAN CORPUSCULAR HEMOGLOBIN 25.6 pg (27.0-33.0); MEAN CORPUSCULAR HGB CONC 30.5 g/dl (32.0-36.5); MEAN CORPUSCULAR VOLUME 83.9 fl (80.0-96.0); PLATELET COUNT, AUTOMATED 254 10^3/uL (150-450); RED BLOOD COUNT 4.61 10^6/uL (4.00-5.40); RED CELL DISTRIBUTION WIDTH 18.6 % (11.5-14.5); WHITE BLOOD COUNT 12.9 10^3/uL (4.0-10.0)
[2017-10-10 11:25] LABS: ANION GAP 9 MEQ/L (8-16); BLOOD UREA NITROGEN 20 MG/DL (7-18); CARBON DIOXIDE LEVEL 33 MEQ/L (21-32); CHLORIDE LEVEL 100 MEQ/L (98-107); CREATININE FOR GFR 0.92 MG/DL (0.55-1.30); DIGOXIN LEVEL 0.7 NG/ML (0.5-2.0); GLOMERULAR FILTRATION RATE > 60.0 (>39); GLUCOSE, FASTING 174 MG/DL (70-100); LDH LACTATE DEHYDROGENASE 424 U/L (84-246); POTASSIUM SERUM 3.9 MEQ/L (3.5-5.1); SODIUM LEVEL 142 MEQ/L (136-145)
== END ==
DX: I10 Essential (primary) hypertension (principal); I49.9 Cardiac arrhythmia, unspecified
CPT/HCPCS: 80162

== ENCOUNTER → 2017-10-15 | Outpatient (REF) | payer OTHER ==
[2017-10-15 17:14] LABS: BASO # 0.1 10^3/uL (0.0-0.2); BASO % 0.4 % (0.0-1.0); EOS # 0.1 10^3/uL (0.0-0.50); EOS % 0.6 % (0.0-3.0); HEMOGLOBIN 11.5 g/dl (12.0-15.5); IMMATURE GRANULOCYTE % 2.5 % (0-3.0); LYMPH # 2.3 10^3/uL (1.5-4.5); MEAN CORPUSCULAR HGB CONC 31.1 g/dl (32.0-36.5); MEAN CORPUSCULAR VOLUME 83.7 fl (80.0-96.0); MONO # 0.9 10^3/uL (0.0-0.8); MONO % 6.5 % (0.0-5.0); NEUTROPHILS # 10.6 10^3/uL (1.8-7.7); PLATELET COUNT, AUTOMATED 333 10^3/uL (150-450); RED BLOOD COUNT 4.42 10^6/uL (4.00-5.40); RED CELL DISTRIBUTION WIDTH 18.4 % (11.5-14.5); WHITE BLOOD COUNT 14.3 10^3/uL (4.0-10.0)
[2017-10-15 17:39] LABS: ALBUMIN 3.2 GM/DL (3.2-5.2); ALKALINE PHOSPHATASE 162 U/L (45-117); ALT/SGPT 62 U/L (12-78); ANION GAP 11 MEQ/L (8-16); AST/SGOT 30 U/L (7-37); BILIRUBIN,TOTAL 0.5 MG/DL (0.2-1.0); BLOOD UREA NITROGEN 20 MG/DL (7-18); C REACTIVE PROTEIN QUANTITATIV < 0.30 MG/DL (0.00-0.30); CALCIUM LEVEL 9.3 MG/DL (8.8-10.2); CARBON DIOXIDE LEVEL 33 MEQ/L (21-32); CHLORIDE LEVEL 98 MEQ/L (98-107); GLOMERULAR FILTRATION RATE 57.4 (>39); GLUCOSE, FASTING 146 MG/DL (70-100); POTASSIUM SERUM 3.6 MEQ/L (3.5-5.1); SODIUM LEVEL 142 MEQ/L (136-145); TOTAL PROTEIN 6.4 GM/DL (6.4-8.2)
[2017-10-15 18:55] LABS: ERYTHROCYTE SEDIMENTATION RATE 19 mm/hr (0-30)
== END ==
DX: I10 Essential (primary) hypertension (principal); D64.9 Anemia, unspecified; M12.9 Arthropathy, unspecified
CPT/HCPCS: 80053

== ENCOUNTER → 2017-11-13 | Outpatient (REF) | payer OTHER ==
[2017-11-13 09:55] LABS: BASO # 0.1 10^3/uL (0.0-0.2); BASO % 0.6 % (0.0-1.0); HEMATOCRIT 38.6 % (36.0-47.0); HEMOGLOBIN 11.7 g/dl (12.0-15.5); IMMATURE GRANULOCYTE % 2.4 % (0-3.0); LYMPH # 1.7 10^3/uL (1.5-4.5); LYMPH % 15.1 % (24.0-44.0); MEAN CORPUSCULAR HEMOGLOBIN 25.7 pg (27.0-33.0); MEAN CORPUSCULAR HGB CONC 30.3 g/dl (32.0-36.5); MEAN CORPUSCULAR VOLUME 84.6 fl (80.0-96.0); MONO # 0.6 10^3/uL (0.0-0.8); MONO % 5.6 % (0.0-5.0); NEUTROPHILS # 8.5 10^3/uL (1.8-7.7); NEUTROPHILS % 76.3 % (36.0-66.0); PLATELET COUNT, AUTOMATED 295 10^3/uL (150-450); RED BLOOD COUNT 4.56 10^6/uL (4.00-5.40); RED CELL DISTRIBUTION WIDTH 17.2 % (11.5-14.5); WHITE BLOOD COUNT 11.1 10^3/uL (4.0-10.0)
[2017-11-13 10:20] LABS: ALBUMIN 3.4 GM/DL (3.2-5.2); ALBUMIN/GLOBULIN RATIO 1.03 (1.00-1.93); ALKALINE PHOSPHATASE 181 U/L (45-117); ALT/SGPT 68 U/L (12-78); ANION GAP 10 MEQ/L (8-16); AST/SGOT 37 U/L (7-37); BILIRUBIN,TOTAL 0.7 MG/DL (0.2-1.0); BLOOD UREA NITROGEN 16 MG/DL (7-18); C REACTIVE PROTEIN QUANTITATIV 0.32 MG/DL (0.00-0.30); CALCIUM LEVEL 9.2 MG/DL (8.8-10.2); CARBON DIOXIDE LEVEL 31 MEQ/L (21-32); CHLORIDE LEVEL 98 MEQ/L (98-107); CREATININE FOR GFR 0.87 MG/DL (0.55-1.30); GLOMERULAR FILTRATION RATE > 60.0 (>39); GLUCOSE, FASTING 281 MG/DL (70-100); POTASSIUM SERUM 4.1 MEQ/L (3.5-5.1); SODIUM LEVEL 139 MEQ/L (136-145); TOTAL PROTEIN 6.7 GM/DL (6.4-8.2)
[2017-11-13 10:47] LABS: ERYTHROCYTE SEDIMENTATION RATE 23 mm/hr (0-30)
== END ==
DX: D64.9 Anemia, unspecified (principal); I10 Essential (primary) hypertension
CPT/HCPCS: 80053

== ENCOUNTER 2017-11-14 13:44 | Outpatient (REF) | payer OTHER ==
[2017-11-20 12:13] LABS: LDH LACTATE DEHYDROGENASE 465 U/L (84-246)
== END 2017-11-20 ==
DX: M19.90 Unspecified osteoarthritis, unspecified site (principal)
CPT/HCPCS: 83615

== ENCOUNTER → 2017-11-23 | Outpatient (REF) | payer OTHER ==
[2017-11-23 11:32] LABS: ANION GAP 15 MEQ/L (8-16); BLOOD UREA NITROGEN 16 MG/DL (7-18); CALCIUM LEVEL 9.6 MG/DL (8.8-10.2); CARBON DIOXIDE LEVEL 30 MEQ/L (21-32); CHLORIDE LEVEL 93 MEQ/L (98-107); CREATININE FOR GFR 1.03 MG/DL (0.55-1.30); GLOMERULAR FILTRATION RATE 55.5 (>39); GLUCOSE, FASTING 272 MG/DL (70-100); POTASSIUM SERUM 3.9 MEQ/L (3.5-5.1); SODIUM LEVEL 138 MEQ/L (136-145)
== END ==
DX: R60.9 Edema, unspecified (principal)
CPT/HCPCS: 80048

== ENCOUNTER → 2017-11-27 | Outpatient (REF) | payer OTHER ==
[2017-11-27 11:03] LABS: ANION GAP 13 MEQ/L (8-16); BLOOD UREA NITROGEN 20 MG/DL (7-18); CALCIUM LEVEL 9.2 MG/DL (8.8-10.2); CARBON DIOXIDE LEVEL 30 MEQ/L (21-32); CHLORIDE LEVEL 98 MEQ/L (98-107); GLOMERULAR FILTRATION RATE > 60.0 (>39); GLUCOSE, FASTING 320 MG/DL (70-100); POTASSIUM SERUM 3.9 MEQ/L (3.5-5.1); SODIUM LEVEL 141 MEQ/L (136-145)
== END ==
DX: R60.9 Edema, unspecified (principal)
CPT/HCPCS: 36415

== ENCOUNTER → 2017-11-28 | Outpatient (REF) | payer OTHER | DX: M25.512 Pain in left shoulder (principal) | CPT/HCPCS: 73030 ==

== ENCOUNTER → 2017-12-04 | Outpatient (REF) | payer OTHER ==
[2017-12-04 11:02] LABS: BASO % 0.3 % (0.0-1.0); HEMATOCRIT 36.4 % (36.0-47.0); HEMOGLOBIN 11.2 g/dl (12.0-15.5); IMMATURE GRANULOCYTE % 1.8 % (0-3.0); LYMPH % 15.6 % (24.0-44.0); MEAN CORPUSCULAR HEMOGLOBIN 27.3 pg (27.0-33.0); MEAN CORPUSCULAR HGB CONC 30.8 g/dl (32.0-36.5); MEAN CORPUSCULAR VOLUME 88.8 fl (80.0-96.0); MONO # 0.9 10^3/uL (0.0-0.8); MONO % 7.3 % (0.0-5.0); NEUTROPHILS # 9.5 10^3/uL (1.8-7.7); PLATELET COUNT, AUTOMATED 320 10^3/uL (150-450); RED CELL DISTRIBUTION WIDTH 17.6 % (11.5-14.5); WHITE BLOOD COUNT 12.7 10^3/uL (4.0-10.0)
[2017-12-04 11:29] LABS: ERYTHROCYTE SEDIMENTATION RATE 23 mm/hr (0-30)
[2017-12-04 11:46] LABS: ALBUMIN 3.3 GM/DL (3.2-5.2); ALBUMIN/GLOBULIN RATIO 1.06 (1.00-1.93); ALKALINE PHOSPHATASE 166 U/L (45-117); ALT/SGPT 69 U/L (12-78); ANION GAP 10 MEQ/L (8-16); AST/SGOT 46 U/L (7-37); BILIRUBIN,TOTAL 0.7 MG/DL (0.2-1.0); BLOOD UREA NITROGEN 16 MG/DL (7-18); C REACTIVE PROTEIN QUANTITATIV 0.45 MG/DL (0.00-0.30); CALCIUM LEVEL 8.9 MG/DL (8.8-10.2); CARBON DIOXIDE LEVEL 30 MEQ/L (21-32); CHLORIDE LEVEL 99 MEQ/L (98-107); CREATININE FOR GFR 0.87 MG/DL (0.55-1.30); GLOMERULAR FILTRATION RATE > 60.0 (>39); GLUCOSE, FASTING 215 MG/DL (70-100); POTASSIUM SERUM 4.1 MEQ/L (3.5-5.1); SODIUM LEVEL 139 MEQ/L (136-145); TOTAL PROTEIN 6.4 GM/DL (6.4-8.2)
== END ==
DX: D64.9 Anemia, unspecified (principal); R60.9 Edema, unspecified
CPT/HCPCS: 80053

== ENCOUNTER 2017-12-10 00:27 | Emergency (ER) | payer OTHER ==
[2017-12-10] MEDS: OXYMETAZOLINE NASAL SPRAY (AFRIN) (01:07)
[2017-12-10 01:21] LABS: BASO # 0.1 10^3/uL (0.0-0.2); BASO % 0.4 % (0.0-1.0); HEMATOCRIT 36.3 % (36.0-47.0); HEMOGLOBIN 11.2 g/dl (12.0-15.5); IMMATURE GRANULOCYTE % 1.2 % (0-3.0); LYMPH # 2.1 10^3/uL (1.5-4.5); LYMPH % 15.2 % (24.0-44.0); MEAN CORPUSCULAR HEMOGLOBIN 27.4 pg (27.0-33.0); MEAN CORPUSCULAR HGB CONC 30.9 g/dl (32.0-36.5); MEAN CORPUSCULAR VOLUME 88.8 fl (80.0-96.0); MONO # 1.1 10^3/uL (0.0-0.8); MONO % 8.4 % (0.0-5.0); NEUTROPHILS # 10.2 10^3/uL (1.8-7.7); NEUTROPHILS % 74.8 % (36.0-66.0); PLATELET COUNT, AUTOMATED 270 10^3/uL (150-450); RED BLOOD COUNT 4.09 10^6/uL (4.00-5.40); RED CELL DISTRIBUTION WIDTH 17.1 % (11.5-14.5); WHITE BLOOD COUNT 13.6 10^3/uL (4.0-10.0)
[2017-12-10 01:33] LABS: INR 0.88
[2017-12-10 01:58] LABS: ANION GAP 9 MEQ/L (8-16); BLOOD UREA NITROGEN 17 MG/DL (7-18); CALCIUM LEVEL 9.4 MG/DL (8.8-10.2); CARBON DIOXIDE LEVEL 35 MEQ/L (21-32); CHLORIDE LEVEL 96 MEQ/L (98-107); CREATININE FOR GFR 1.05 MG/DL (0.55-1.30); GLOMERULAR FILTRATION RATE 54.1 (>39); GLUCOSE, FASTING 232 MG/DL (70-100); POTASSIUM SERUM 3.6 MEQ/L (3.5-5.1); SODIUM LEVEL 140 MEQ/L (136-145)
[2017-12-10] MEDS: PERCOCET 5MG/325MG TAB PO (03:30)
== END 2017-12-10 03:38 | disposition home or self-care (01) ==
LOC: M ED 00:27
DX: R04.0 Epistaxis (principal)
CPT/HCPCS: 83615

== ENCOUNTER → 2017-12-10 | Outpatient (REF) | payer OTHER ==
[2017-12-10 14:11] LABS: HEMATOCRIT 38.6 % (36.0-47.0); HEMOGLOBIN 11.7 g/dl (12.0-15.5); MEAN CORPUSCULAR HEMOGLOBIN 27.2 pg (27.0-33.0); MEAN CORPUSCULAR HGB CONC 30.3 g/dl (32.0-36.5); MEAN CORPUSCULAR VOLUME 89.8 fl (80.0-96.0); PLATELET COUNT, AUTOMATED 310 10^3/uL (150-450); RED CELL DISTRIBUTION WIDTH 17.1 % (11.5-14.5); WHITE BLOOD COUNT 14.1 10^3/uL (4.0-10.0)
[2017-12-10 14:41] LABS: ANION GAP 15 MEQ/L (8-16); BLOOD UREA NITROGEN 19 MG/DL (7-18); CALCIUM LEVEL 9.6 MG/DL (8.8-10.2); CARBON DIOXIDE LEVEL 30 MEQ/L (21-32); CHLORIDE LEVEL 94 MEQ/L (98-107); CREATININE FOR GFR 0.98 MG/DL (0.55-1.30); GLOMERULAR FILTRATION RATE 58.6 (>39); GLUCOSE, FASTING 239 MG/DL (70-100); LDH LACTATE DEHYDROGENASE 425 U/L (84-246); POTASSIUM SERUM 3.8 MEQ/L (3.5-5.1); SODIUM LEVEL 139 MEQ/L (136-145)
== END ==
DX: R60.0 Localized edema (principal)

== ENCOUNTER → 2017-12-25 | Outpatient (REF) | payer OTHER ==
[2017-12-25 10:36] LABS: BASO # 0.1 10^3/uL (0.0-0.2); BASO % 0.4 % (0.0-1.0); HEMATOCRIT 37.3 % (36.0-47.0); HEMOGLOBIN 11.4 g/dl (12.0-15.5); IMMATURE GRANULOCYTE % 1.7 % (0-3.0); LYMPH # 1.6 10^3/uL (1.5-4.5); LYMPH % 13.5 % (24.0-44.0); MEAN CORPUSCULAR HEMOGLOBIN 27.4 pg (27.0-33.0); MEAN CORPUSCULAR HGB CONC 30.6 g/dl (32.0-36.5); MEAN CORPUSCULAR VOLUME 89.7 fl (80.0-96.0); MONO # 0.7 10^3/uL (0.0-0.8); MONO % 6.4 % (0.0-5.0); PLATELET COUNT, AUTOMATED 304 10^3/uL (150-450); RED BLOOD COUNT 4.16 10^6/uL (4.00-5.40); RED CELL DISTRIBUTION WIDTH 15.9 % (11.5-14.5); WHITE BLOOD COUNT 11.5 10^3/uL (4.0-10.0)
[2017-12-25 11:10] LABS: ALBUMIN 3.4 GM/DL (3.2-5.2); ALBUMIN/GLOBULIN RATIO 1.17 (1.00-1.93); ALKALINE PHOSPHATASE 167 U/L (45-117); ALT/SGPT 69 U/L (12-78); ANION GAP 9 MEQ/L (8-16); AST/SGOT 45 U/L (7-37); BILIRUBIN,TOTAL 0.5 MG/DL (0.2-1.0); BLOOD UREA NITROGEN 14 MG/DL (7-18); C REACTIVE PROTEIN QUANTITATIV 0.33 MG/DL (0.00-0.30); CALCIUM LEVEL 9.4 MG/DL (8.8-10.2); CARBON DIOXIDE LEVEL 29 MEQ/L (21-32); CHLORIDE LEVEL 99 MEQ/L (98-107); GLOMERULAR FILTRATION RATE > 60.0 (>39); GLUCOSE, FASTING 322 MG/DL (70-100); POTASSIUM SERUM 4.2 MEQ/L (3.5-5.1); SODIUM LEVEL 137 MEQ/L (136-145); TOTAL PROTEIN 6.3 GM/DL (6.4-8.2)
[2017-12-25 11:40] LABS: ERYTHROCYTE SEDIMENTATION RATE 15 mm/hr (0-30)
== END ==
DX: M31.6 Other giant cell arteritis (principal); D64.9 Anemia, unspecified
CPT/HCPCS: 80053

== ENCOUNTER 2017-12-31 19:31 | Inpatient (IN) | payer OTHER ==
[2017-12-31 20:15] LABS: BASO % 0.2 % (0.0-1.0); EOS % 0.3 % (0.0-3.0); HEMATOCRIT 36.7 % (36.0-47.0); HEMOGLOBIN 11.6 g/dl (12.0-15.5); IMMATURE GRANULOCYTE % 2.2 % (0-3.0); LYMPH # 0.5 10^3/uL (1.5-4.5); LYMPH % 3.7 % (24.0-44.0); MEAN CORPUSCULAR HEMOGLOBIN 27.4 pg (27.0-33.0); MEAN CORPUSCULAR HGB CONC 31.6 g/dl (32.0-36.5); MEAN CORPUSCULAR VOLUME 86.8 fl (80.0-96.0); MONO # 0.1 10^3/uL (0.0-0.8); NEUTROPHILS # 11.7 10^3/uL (1.8-7.7); NEUTROPHILS % 92.6 % (36.0-66.0); PLATELET COUNT, AUTOMATED 236 10^3/uL (150-450); RED BLOOD COUNT 4.23 10^6/uL (4.00-5.40); RED CELL DISTRIBUTION WIDTH 15.9 % (11.5-14.5); WHITE BLOOD COUNT 12.7 10^3/uL (4.0-10.0)
[2017-12-31] MEDS: NS 500 ML IV (20:15)
[2017-12-31] MEDS: ACETAMINOPHEN TAB 650MG DOSE (2X325MG) PO (20:15)
[2017-12-31 20:28] LABS: ALBUMIN 3.1 GM/DL (3.2-5.2); ALBUMIN/GLOBULIN RATIO 0.94 (1.00-1.93); ALKALINE PHOSPHATASE 268 U/L (45-117); ALT/SGPT 90 U/L (12-78); AMYLASE 22 U/L (25-115); ANION GAP 12 MEQ/L (8-16); AST/SGOT 89 U/L (7-37); BILIRUBIN,DIRECT 0.6 MG/DL (0.0-0.2); BILIRUBIN,TOTAL 1.1 MG/DL (0.2-1.0); BLOOD UREA NITROGEN 17 MG/DL (7-18); CALCIUM LEVEL 9.3 MG/DL (8.8-10.2); CARBON DIOXIDE LEVEL 28 MEQ/L (21-32); CHLORIDE LEVEL 99 MEQ/L (98-107); CK-MB VALUE MASS < 1.0 NG/ML (<3.6); CPK CREATINE PHOSPHOKINASE 35 U/L (26-192); CREATININE FOR GFR 1.12 MG/DL (0.55-1.30); GLOMERULAR FILTRATION RATE 50.2 (>39); GLUCOSE, FASTING 138 MG/DL (70-100); LIPASE 167 U/L (73-393); MB/CK RELATIVE INDEX 2.86 (< OR =4); POTASSIUM SERUM 3.2 MEQ/L (3.5-5.1); SODIUM LEVEL 139 MEQ/L (136-145); TOTAL PROTEIN 6.4 GM/DL (6.4-8.2); TROPONIN I 0.08 NG/ML (< 0.10)
[2017-12-31] MEDS ORDERED: ISOVUE-370 76% 100ML VIAL (Q9967) As Ordered (20:52)
[2017-12-31 20:55] LABS: LACTIC ACID SEPSIS PROTOCOL 5.5 MMOL/L (0.4-2.0)
[2017-12-31 20:56] LABS: AMORPHOUS SEDIMENT RFX SMALL (NEGATIVE); KETONE, URINE AUTO RFX NEGATIVE (NEGATIVE); NITRITE, URINE AUTO RFX NEGATIVE (NEGATIVE); RBC, URINE AUTO RFX 62 /HPF (0-3); SPECIFIC GRAVITY UR AUTO RFX 1.012 (1.002-1.035); SQUAM EPITHELIAL CELL UR AURFX 0 /HPF (0-6)
[2017-12-31 21:01] LABS: LEUKOCYTE ESTERASE UR AUTO RFX 3+ (NEGATIVE); WBC, URINE AUTO RFX 32 /HPF (0-3)
[2017-12-31] MEDS: cefTRIAXone SOD 1 GM in D5W MINI-BAG PLUS 50 ML IV (22:00)
[2017-12-31] MEDS: NS 1,000 ML IV (23:15)
[2018-01-01] MEDS ORDERED: ONDANSETRON 4MG/2ML VIAL (J2405) IV
[2018-01-01] MEDS: NS 1,000 ML IV ×3 (00:11→19:00)
[2018-01-01] MEDS ORDERED: BISACODYL 10 MG SUPP PR (00:15)
[2018-01-01] MEDS ORDERED: DEXTROSE 50% 50 ML SYRINGE IV (00:15)
[2018-01-01] MEDS ORDERED: GLUCOSE 4 GM CHEW TABLET PO (00:15)
[2018-01-01] MEDS ORDERED: GLUCAGON FOR INJ 1 MG VIAL (J1610) SC (00:15)
[2018-01-01 02:06] LABS: BEDSIDE GLUCOSE 165 MG/DL (83-110)
[2018-01-01] MEDS: SENOKOT S TAB PO ×2 (02:17→22:57)
[2018-01-01] MEDS: TAMSULOSIN 0.4 MG CAP PO ×2 (02:17→22:57)
[2018-01-01] MEDS: POTASSIUM CHLORIDE 10 MEQ SR TABLET PO (02:17)
[2018-01-01] MEDS: VITAMIN D 1,000 INTERNATIONAL UNITS TABLET PO ×2 (02:17→22:57)
[2018-01-01] MEDS: FAMOTIDINE 20 MG TAB PO ×2 (02:17→22:57)
[2018-01-01] MEDS: GABAPENTIN 300 MG CAP PO ×4 (02:18→22:57)
[2018-01-01] MEDS: HumaLOG INSULIN (NovoLOG) PER UNIT SC ×4 (02:19→19:00)
[2018-01-01] MEDS: LEVEMIR (INSULIN DETEMIR) 1 UNITS/0.01ML SC ×3 (02:19→21:00)
[2018-01-01] MEDS: ACETAMINOPHEN 325 MG TAB PO ×3 (03:04→11:12)
[2018-01-01 06:56] LABS: HEMATOCRIT 32.8 % (36.0-47.0); HEMOGLOBIN 10.2 g/dl (12.0-15.5); MEAN CORPUSCULAR HEMOGLOBIN 27.3 pg (27.0-33.0); MEAN CORPUSCULAR HGB CONC 31.1 g/dl (32.0-36.5); MEAN CORPUSCULAR VOLUME 87.9 fl (80.0-96.0); PLATELET COUNT, AUTOMATED 203 10^3/uL (150-450); RED BLOOD COUNT 3.73 10^6/uL (4.00-5.40); RED CELL DISTRIBUTION WIDTH 15.9 % (11.5-14.5); WHITE BLOOD COUNT 17.5 10^3/uL (4.0-10.0)
[2018-01-01 07:02] LABS: BEDSIDE GLUCOSE 125 MG/DL (83-110)
[2018-01-01] MEDS: HEPARIN SOD (PORCINE) 5000 UNITS/ML VIAL SC ×3 (07:07→22:54)
[2018-01-01] MEDS: MIDODRINE 5 MG TAB PO ×3 (07:07→22:57)
[2018-01-01 07:19] LABS: ALBUMIN 2.4 GM/DL (3.2-5.2); ALBUMIN/GLOBULIN RATIO 0.83 (1.00-1.93); ALKALINE PHOSPHATASE 212 U/L (45-117); ALT/SGPT 82 U/L (12-78); ANION GAP 10 MEQ/L (8-16); AST/SGOT 83 U/L (7-37); BILIRUBIN,TOTAL 1.2 MG/DL (0.2-1.0); BLOOD UREA NITROGEN 18 MG/DL (7-18); CALCIUM LEVEL 8.2 MG/DL (8.8-10.2); CARBON DIOXIDE LEVEL 29 MEQ/L (21-32); CHLORIDE LEVEL 102 MEQ/L (98-107); CREATININE FOR GFR 1.35 MG/DL (0.55-1.30); GLOMERULAR FILTRATION RATE 40.5 (>39); GLUCOSE, FASTING 116 MG/DL (70-100); POTASSIUM SERUM 3.1 MEQ/L (3.5-5.1); SODIUM LEVEL 141 MEQ/L (136-145); TOTAL PROTEIN 5.3 GM/DL (6.4-8.2)
[2018-01-01] MEDS ORDERED: ENTER DRUG NAME HERE (PATIENT'S OWN MED) PO (09:00)
[2018-01-01] MEDS: FERROUS SULFATE 325MG TAB PO (10:07)
[2018-01-01] MEDS: ASPIRIN 81 MG ENTERIC TAB PO (10:07)
[2018-01-01] MEDS: CEFEPIME HCL 1 GM in D5W MINI-BAG PLUS 50 ML IV ×2 (10:07→23:05)
[2018-01-01] MEDS: predniSONE 5 MG TAB PO (10:08)
[2018-01-01] MEDS: DULoxetine 30 MG CAP (CYMBALTA) PO (10:08)
[2018-01-01] MEDS: PANTOPRAZOLE 40MG TAB (PROTONIX) PO (10:08)
[2018-01-01] MEDS: predniSONE 1 MG TAB PO (10:08)
[2018-01-01] MEDS: MULTIVITAMINS/MINERALS THERAP 1 TAB PO (10:10)
[2018-01-01] MEDS: DIGOXIN 0.125 MG TAB PO (10:10)
[2018-01-01 10:26] LABS: MAGNESIUM LEVEL 1.5 MG/DL (1.8-2.4)
[2018-01-01 11:22] LABS: BEDSIDE GLUCOSE 201 MG/DL (83-110)
[2018-01-01] MEDS ORDERED: MAG SULF 1GM/100ML (MAG RUN) 1 GM in APPROPRIATE DILUENT 1 EA IV (15:00)
[2018-01-01] MEDS: KCL 10MEQ/100ML SWI (KRUN) 10 MEQ in APPROPRIATE DILUENT 1 EA IV ×2 (15:12→16:25)
[2018-01-01 15:49] LABS: LACTIC ACID SEPSIS PROTOCOL 1.8 MMOL/L (0.4-2.0)
[2018-01-01 16:36] LABS: BEDSIDE GLUCOSE 242 MG/DL (83-110)
[2018-01-01] MEDS ORDERED: ONDANSETRON 4MG/2ML VIAL (J2405) As Ordered (17:41)
[2018-01-01] MEDS ORDERED: PROPOFOL 200 MG/20 ML VIAL As Ordered (17:41)
[2018-01-01] MEDS ORDERED: MIDAZOLAM INJ 2 MG/2 ML VIAL (J2250) As Ordered (17:41)
[2018-01-01] MEDS ORDERED: LIDOCAINE 2% INJ 100 MG/5 ML SDV (FOR ANES.) As Ordered (17:41)
[2018-01-01] MEDS ORDERED: fentaNYL 100 MCG/2 ML INJECTION (J3010) As Ordered (17:41)
[2018-01-01] MEDS ORDERED: dexameTHASONE 4 MG/ML 1ML VIAL (J1100) As Ordered (17:41)
[2018-01-01] MEDS: CONRAY-60 60% 50ML VIAL (Q9961) As Ordered (18:11)
[2018-01-01] MEDS: LIDOCAINE 2% 5ML JELLY UROJET As Ordered (18:17)
[2018-01-01] MEDS ORDERED: NS 1,000 ML IV (18:45)
[2018-01-01] MEDS ORDERED: fentaNYL 100 MCG/2 ML INJECTION (J3010) IV (18:45)
[2018-01-01] MEDS ORDERED: FUROSEMIDE 20 MG/2 ML VIAL (J1940) As Ordered (18:54)
[2018-01-01] MEDS: FUROSEMIDE 20 MG/2 ML VIAL (J1940) IV (19:00)
[2018-01-01 19:13] LABS: HEMATOCRIT 31.3 % (36.0-47.0); HEMOGLOBIN 9.7 g/dl (12.0-15.5); MEAN CORPUSCULAR HEMOGLOBIN 27.3 pg (27.0-33.0); MEAN CORPUSCULAR VOLUME 88.2 fl (80.0-96.0); PLATELET COUNT, AUTOMATED 203 10^3/uL (150-450); RED BLOOD COUNT 3.55 10^6/uL (4.00-5.40); RED CELL DISTRIBUTION WIDTH 15.9 % (11.5-14.5); WHITE BLOOD COUNT 15.1 10^3/uL (4.0-10.0)
[2018-01-01 19:45] LABS: ANION GAP 7 MEQ/L (8-16); BLOOD UREA NITROGEN 19 MG/DL (7-18); CARBON DIOXIDE LEVEL 28 MEQ/L (21-32); CHLORIDE LEVEL 105 MEQ/L (98-107); GLOMERULAR FILTRATION RATE 51.3 (>39); GLUCOSE, FASTING 226 MG/DL (70-100); POTASSIUM SERUM 4.4 MEQ/L (3.5-5.1); SODIUM LEVEL 140 MEQ/L (136-145)
[2018-01-01] MEDS: MAG SULF 1GM/100ML (MAG RUN) 1 GM in APPROPRIATE DILUENT 1 EA IV ×2 (20:57→22:04)
[2018-01-01 21:03] LABS: BEDSIDE GLUCOSE 209 MG/DL (83-110)
[2018-01-01] MEDS ORDERED: CEFEPIME HCL 2 GM in D5W MINI-BAG PLUS 50 ML IV (22:00)
[2018-01-01] MEDS ORDERED: cefTRIAXone SOD 1 GM in D5W MINI-BAG PLUS 50 ML IV (22:00)
[2018-01-01] MEDS: ACETAMINOPHEN 650MG ER TAB (TYLENOL ARTHRITIS) PO (22:58)
[2018-01-02 00:02] LABS: BEDSIDE GLUCOSE 216 MG/DL (83-110)
[2018-01-02] MEDS: ACETAMINOPHEN 325 MG TAB PO (04:41)
[2018-01-02] MEDS: ACETAMINOPHEN 650MG ER TAB (TYLENOL ARTHRITIS) PO ×3 (05:55→21:10)
[2018-01-02] MEDS: GABAPENTIN 300 MG CAP PO ×3 (05:55→21:11)
[2018-01-02] MEDS: MIDODRINE 5 MG TAB PO ×3 (05:56→17:41)
[2018-01-02] MEDS: HEPARIN SOD (PORCINE) 5000 UNITS/ML VIAL SC ×3 (05:57→21:10)
[2018-01-02] MEDS: HumaLOG INSULIN (NovoLOG) PER UNIT SC ×5 (06:00→21:09)
[2018-01-02 06:12] LABS: BEDSIDE GLUCOSE 152 MG/DL (83-110)
[2018-01-02 06:14] LABS: HEMATOCRIT 31.9 % (36.0-47.0); HEMOGLOBIN 9.9 g/dl (12.0-15.5); MEAN CORPUSCULAR HEMOGLOBIN 27.5 pg (27.0-33.0); MEAN CORPUSCULAR VOLUME 88.6 fl (80.0-96.0); PLATELET COUNT, AUTOMATED 193 10^3/uL (150-450); RED CELL DISTRIBUTION WIDTH 15.7 % (11.5-14.5); WHITE BLOOD COUNT 12.5 10^3/uL (4.0-10.0)
[2018-01-02 06:37] LABS: ALBUMIN 2.1 GM/DL (3.2-5.2); ALBUMIN/GLOBULIN RATIO 0.66 (1.00-1.93); ALKALINE PHOSPHATASE 182 U/L (45-117); ALT/SGPT 84 U/L (12-78); ANION GAP 8 MEQ/L (8-16); AST/SGOT 77 U/L (7-37); BILIRUBIN,TOTAL 0.9 MG/DL (0.2-1.0); BLOOD UREA NITROGEN 19 MG/DL (7-18); CALCIUM LEVEL 8.1 MG/DL (8.8-10.2); CARBON DIOXIDE LEVEL 30 MEQ/L (21-32); CHLORIDE LEVEL 106 MEQ/L (98-107); CREATININE FOR GFR 0.96 MG/DL (0.55-1.30); GLUCOSE, FASTING 137 MG/DL (70-100); POTASSIUM SERUM 3.4 MEQ/L (3.5-5.1); SODIUM LEVEL 144 MEQ/L (136-145); TOTAL PROTEIN 5.3 GM/DL (6.4-8.2)
[2018-01-02 08:33] LABS: MAGNESIUM LEVEL 2.5 MG/DL (1.8-2.4)
[2018-01-02] MEDS: LEVEMIR (INSULIN DETEMIR) 1 UNITS/0.01ML SC ×2 (09:00→21:09)
[2018-01-02] MEDS: PANTOPRAZOLE 40MG INJ (PROTONIX) (C9113) IV (09:28)
[2018-01-02] MEDS: FUROSEMIDE 40 MG/4 ML VIAL (J1940) IV ×2 (09:28→17:42)
[2018-01-02] MEDS: CEFEPIME HCL 1 GM in D5W MINI-BAG PLUS 50 ML IV ×2 (09:28→21:53)
[2018-01-02] MEDS: DULoxetine 30 MG CAP (CYMBALTA) PO (09:33)
[2018-01-02] MEDS: FERROUS SULFATE 325MG TAB PO (09:33)
[2018-01-02] MEDS: MULTIVITAMINS/MINERALS THERAP 1 TAB PO (09:33)
[2018-01-02] MEDS: predniSONE 5 MG TAB PO (09:33)
[2018-01-02] MEDS: predniSONE 1 MG TAB PO (09:33)
[2018-01-02] MEDS: ASPIRIN 81 MG ENTERIC TAB PO (09:33)
[2018-01-02] MEDS: DIGOXIN 0.125 MG TAB PO (09:34)
[2018-01-02 11:35] LABS: BEDSIDE GLUCOSE 207 MG/DL (83-110)
[2018-01-02 12:19] LABS: HEPATITIS A ANTIBODY IGM NEGATIVE (NEGATIVE); HEPATITIS B CORE ANTIBODY IGM NEGATIVE (NEGATIVE); HEPATITIS B SURFACE ANTIGEN NEGATIVE (NEGATIVE)
[2018-01-02 12:19] LABS: HEPATITIS C VIRUS ABY INDEX < 0.0 INDEX (<0.8)
[2018-01-02] MEDS: POTASSIUM CHLORIDE 10 MEQ SR TABLET PO (13:05)
[2018-01-02 16:32] LABS: BEDSIDE GLUCOSE 353 MG/DL (83-110)
[2018-01-02 20:39] LABS: BEDSIDE GLUCOSE 426 MG/DL (83-110)
[2018-01-02] MEDS: SENOKOT S TAB PO (21:10)
[2018-01-02] MEDS: FAMOTIDINE 20 MG TAB PO (21:11)
[2018-01-02] MEDS: VITAMIN D 1,000 INTERNATIONAL UNITS TABLET PO (21:11)
[2018-01-02] MEDS: TAMSULOSIN 0.4 MG CAP PO (21:11)
[2018-01-03] MEDS: MIDODRINE 5 MG TAB PO ×4 (05:33→17:24)
[2018-01-03] MEDS: GABAPENTIN 300 MG CAP PO ×3 (05:37→21:18)
[2018-01-03] MEDS: ACETAMINOPHEN 650MG ER TAB (TYLENOL ARTHRITIS) PO ×3 (05:37→21:18)
[2018-01-03] MEDS: HEPARIN SOD (PORCINE) 5000 UNITS/ML VIAL SC ×3 (05:38→21:19)
[2018-01-03 06:25] LABS: HEMATOCRIT 30.3 % (36.0-47.0); HEMOGLOBIN 9.4 g/dl (12.0-15.5); MEAN CORPUSCULAR VOLUME 87.1 fl (80.0-96.0); PLATELET COUNT, AUTOMATED 107 10^3/uL (150-450); RED BLOOD COUNT 3.48 10^6/uL (4.00-5.40); RED CELL DISTRIBUTION WIDTH 15.2 % (11.5-14.5); WHITE BLOOD COUNT 8.6 10^3/uL (4.0-10.0)
[2018-01-03 06:32] LABS: ALBUMIN 2.4 GM/DL (3.2-5.2); ALBUMIN/GLOBULIN RATIO 0.69 (1.00-1.93); ALKALINE PHOSPHATASE 200 U/L (45-117); ALT/SGPT 71 U/L (12-78); ANION GAP 6 MEQ/L (8-16); AST/SGOT 49 U/L (7-37); BILIRUBIN,TOTAL 0.6 MG/DL (0.2-1.0); BLOOD UREA NITROGEN 19 MG/DL (7-18); CALCIUM LEVEL 8.8 MG/DL (8.8-10.2); CARBON DIOXIDE LEVEL 32 MEQ/L (21-32); CHLORIDE LEVEL 101 MEQ/L (98-107); CREATININE FOR GFR 1.03 MG/DL (0.55-1.30); GLOMERULAR FILTRATION RATE 55.3 (>39); GLUCOSE, FASTING 298 MG/DL (70-100); POTASSIUM SERUM 3.6 MEQ/L (3.5-5.1); SODIUM LEVEL 139 MEQ/L (136-145); TOTAL PROTEIN 5.9 GM/DL (6.4-8.2)
[2018-01-03 06:48] LABS: BEDSIDE GLUCOSE 271 MG/DL (83-110)
[2018-01-03] MEDS: PANTOPRAZOLE 40MG INJ (PROTONIX) (C9113) IV (08:23)
[2018-01-03] MEDS: LEVEMIR (INSULIN DETEMIR) 1 UNITS/0.01ML SC ×2 (08:24→21:20)
[2018-01-03] MEDS: FUROSEMIDE 40 MG/4 ML VIAL (J1940) IV ×2 (08:24→16:17)
[2018-01-03] MEDS: HumaLOG INSULIN (NovoLOG) PER UNIT SC ×4 (08:25→21:20)
[2018-01-03] MEDS: FERROUS SULFATE 325MG TAB PO (08:25)
[2018-01-03] MEDS: DULoxetine 30 MG CAP (CYMBALTA) PO (08:25)
[2018-01-03] MEDS: MULTIVITAMINS/MINERALS THERAP 1 TAB PO (08:25)
[2018-01-03] MEDS: ASPIRIN 81 MG ENTERIC TAB PO (08:25)
[2018-01-03] MEDS: predniSONE 5 MG TAB PO (08:25)
[2018-01-03] MEDS: DIGOXIN 0.125 MG TAB PO (08:26)
[2018-01-03] MEDS: CEFEPIME HCL 1 GM in D5W MINI-BAG PLUS 50 ML IV ×2 (10:41→21:20)
[2018-01-03] MEDS: predniSONE 1 MG TAB PO (10:41)
[2018-01-03 12:27] LABS: BEDSIDE GLUCOSE 329 MG/DL (83-110)
[2018-01-03] MEDS: ACETAMINOPHEN 325 MG TAB PO (16:17)
[2018-01-03 17:07] LABS: BEDSIDE GLUCOSE 369 MG/DL (83-110)
[2018-01-03 20:23] LABS: BEDSIDE GLUCOSE 397 MG/DL (83-110)
[2018-01-03] MEDS: FAMOTIDINE 20 MG TAB PO (21:18)
[2018-01-03] MEDS: SENOKOT S TAB PO (21:18)
[2018-01-03] MEDS: TAMSULOSIN 0.4 MG CAP PO (21:18)
[2018-01-03] MEDS: VITAMIN D 1,000 INTERNATIONAL UNITS TABLET PO (21:19)
[2018-01-04] MEDS: HEPARIN SOD (PORCINE) 5000 UNITS/ML VIAL SC ×3 (05:29→21:58)
[2018-01-04] MEDS: ACETAMINOPHEN 650MG ER TAB (TYLENOL ARTHRITIS) PO ×3 (05:30→21:57)
[2018-01-04] MEDS: GABAPENTIN 300 MG CAP PO ×3 (05:30→21:58)
[2018-01-04] MEDS: MIDODRINE 5 MG TAB PO ×3 (05:30→17:18)
[2018-01-04 06:39] LABS: HEMOGLOBIN 10.3 g/dl (12.0-15.5); MEAN CORPUSCULAR HEMOGLOBIN 27.2 pg (27.0-33.0); MEAN CORPUSCULAR HGB CONC 31.2 g/dl (32.0-36.5); MEAN CORPUSCULAR VOLUME 87.1 fl (80.0-96.0); PLATELET COUNT, AUTOMATED 199 10^3/uL (150-450); RED BLOOD COUNT 3.79 10^6/uL (4.00-5.40); WHITE BLOOD COUNT 8.6 10^3/uL (4.0-10.0)
[2018-01-04] MEDS: HumaLOG INSULIN (NovoLOG) PER UNIT SC ×4 (07:30→21:59)
[2018-01-04 08:03] LABS: ALBUMIN 2.7 GM/DL (3.2-5.2); ALBUMIN/GLOBULIN RATIO 0.73 (1.00-1.93); ALKALINE PHOSPHATASE 231 U/L (45-117); ALT/SGPT 67 U/L (12-78); ANION GAP 6 MEQ/L (8-16); AST/SGOT 42 U/L (7-37); BILIRUBIN,TOTAL 0.6 MG/DL (0.2-1.0); BLOOD UREA NITROGEN 14 MG/DL (7-18); CARBON DIOXIDE LEVEL 34 MEQ/L (21-32); CHLORIDE LEVEL 103 MEQ/L (98-107); CREATININE FOR GFR 0.82 MG/DL (0.55-1.30); GLOMERULAR FILTRATION RATE > 60.0 (>39); GLUCOSE, FASTING 67 MG/DL (70-100); SODIUM LEVEL 143 MEQ/L (136-145); TOTAL PROTEIN 6.4 GM/DL (6.4-8.2)
[2018-01-04] MEDS: predniSONE 1 MG TAB PO (08:26)
[2018-01-04] MEDS: predniSONE 5 MG TAB PO (08:26)
[2018-01-04] MEDS: LEVEMIR (INSULIN DETEMIR) 1 UNITS/0.01ML SC ×2 (08:26→22:00)
[2018-01-04] MEDS: FUROSEMIDE 40 MG/4 ML VIAL (J1940) IV ×2 (08:26→17:17)
[2018-01-04] MEDS: PANTOPRAZOLE 40MG INJ (PROTONIX) (C9113) IV (08:26)
[2018-01-04] MEDS: ASPIRIN 81 MG ENTERIC TAB PO (08:27)
[2018-01-04] MEDS: FERROUS SULFATE 325MG TAB PO (08:27)
[2018-01-04] MEDS: DIGOXIN 0.125 MG TAB PO (08:27)
[2018-01-04] MEDS: DULoxetine 30 MG CAP (CYMBALTA) PO (08:27)
[2018-01-04] MEDS: MULTIVITAMINS/MINERALS THERAP 1 TAB PO (08:27)
[2018-01-04] MEDS: CEFEPIME HCL 1 GM in D5W MINI-BAG PLUS 50 ML IV ×2 (10:02→22:01)
[2018-01-04 11:29] LABS: BEDSIDE GLUCOSE 121 MG/DL (83-110)
[2018-01-04 16:32] LABS: BEDSIDE GLUCOSE 251 MG/DL (83-110)
[2018-01-04 20:47] LABS: BEDSIDE GLUCOSE 343 MG/DL (83-110)
[2018-01-04] MEDS: SENOKOT S TAB PO (21:58)
[2018-01-04] MEDS: TAMSULOSIN 0.4 MG CAP PO (21:58)
[2018-01-04] MEDS: FAMOTIDINE 20 MG TAB PO (21:58)
[2018-01-04] MEDS: VITAMIN D 1,000 INTERNATIONAL UNITS TABLET PO (21:58)
[2018-01-04] MEDS: POTASSIUM CHLORIDE 10 MEQ SR TABLET PO (21:59)
[2018-01-05] MEDS: MIDODRINE 5 MG TAB PO ×3 (04:58→16:59)
[2018-01-05] MEDS: HEPARIN SOD (PORCINE) 5000 UNITS/ML VIAL SC ×3 (05:04→21:05)
[2018-01-05] MEDS: ACETAMINOPHEN 650MG ER TAB (TYLENOL ARTHRITIS) PO ×3 (05:04→21:04)
[2018-01-05] MEDS: GABAPENTIN 300 MG CAP PO ×3 (05:04→21:05)
[2018-01-05 05:33] LABS: HEMATOCRIT 35.4 % (36.0-47.0); HEMOGLOBIN 10.9 g/dl (12.0-15.5); MEAN CORPUSCULAR HEMOGLOBIN 26.8 pg (27.0-33.0); MEAN CORPUSCULAR HGB CONC 30.8 g/dl (32.0-36.5); PLATELET COUNT, AUTOMATED 223 10^3/uL (150-450); RED BLOOD COUNT 4.07 10^6/uL (4.00-5.40); WHITE BLOOD COUNT 9.2 10^3/uL (4.0-10.0)
[2018-01-05 06:04] LABS: ALBUMIN 2.6 GM/DL (3.2-5.2); ALBUMIN/GLOBULIN RATIO 0.68 (1.00-1.93); ALKALINE PHOSPHATASE 273 U/L (45-117); ALT/SGPT 71 U/L (12-78); ANION GAP 9 MEQ/L (8-16); AST/SGOT 47 U/L (7-37); BILIRUBIN,TOTAL 0.6 MG/DL (0.2-1.0); BLOOD UREA NITROGEN 16 MG/DL (7-18); CALCIUM LEVEL 8.9 MG/DL (8.8-10.2); CARBON DIOXIDE LEVEL 32 MEQ/L (21-32); CHLORIDE LEVEL 100 MEQ/L (98-107); CREATININE FOR GFR 0.83 MG/DL (0.55-1.30); GLOMERULAR FILTRATION RATE > 60.0 (>39); GLUCOSE, FASTING 71 MG/DL (70-100); POTASSIUM SERUM 2.9 MEQ/L (3.5-5.1); SODIUM LEVEL 141 MEQ/L (136-145); TOTAL PROTEIN 6.4 GM/DL (6.4-8.2)
[2018-01-05] MEDS: POTASSIUM CHLORIDE 10 MEQ SR TABLET PO ×3 (06:46→18:14)
[2018-01-05] MEDS: HumaLOG INSULIN (NovoLOG) PER UNIT SC ×4 (07:30→21:06)
[2018-01-05 08:01] LABS: MAGNESIUM LEVEL 2.1 MG/DL (1.8-2.4)
[2018-01-05] MEDS: PANTOPRAZOLE 40MG INJ (PROTONIX) (C9113) IV (09:53)
[2018-01-05] MEDS: CEFEPIME HCL 1 GM in D5W MINI-BAG PLUS 50 ML IV ×2 (09:53→21:07)
[2018-01-05] MEDS: LEVEMIR (INSULIN DETEMIR) 1 UNITS/0.01ML SC ×2 (09:55→21:06)
[2018-01-05] MEDS: FERROUS SULFATE 325MG TAB PO (09:56)
[2018-01-05] MEDS: MULTIVITAMINS/MINERALS THERAP 1 TAB PO (09:56)
[2018-01-05] MEDS: DIGOXIN 0.125 MG TAB PO (09:56)
[2018-01-05] MEDS: predniSONE 5 MG TAB PO (09:56)
[2018-01-05] MEDS: DULoxetine 30 MG CAP (CYMBALTA) PO (09:56)
[2018-01-05] MEDS: ASPIRIN 81 MG ENTERIC TAB PO (09:57)
[2018-01-05] MEDS: predniSONE 1 MG TAB PO (09:57)
[2018-01-05] MEDS: ACETAMINOPHEN 325 MG TAB PO ×2 (10:09→22:47)
[2018-01-05] MEDS: FUROSEMIDE 40 MG TAB PO ×2 (10:09→14:32)
[2018-01-05] MEDS: SPIRONOLACTONE 25 MG TAB PO (10:09)
[2018-01-05 11:45] LABS: BEDSIDE GLUCOSE 138 MG/DL (83-110)
[2018-01-05 17:27] LABS: BEDSIDE GLUCOSE 287 MG/DL (83-110)
[2018-01-05 18:05] LABS: ANION GAP 6 MEQ/L (8-16); BLOOD UREA NITROGEN 17 MG/DL (7-18); CALCIUM LEVEL 9.3 MG/DL (8.8-10.2); CARBON DIOXIDE LEVEL 29 MEQ/L (21-32); CHLORIDE LEVEL 101 MEQ/L (98-107); CREATININE FOR GFR 1.13 MG/DL (0.55-1.30); GLOMERULAR FILTRATION RATE 49.7 (>39); GLUCOSE, FASTING 297 MG/DL (70-100); POTASSIUM SERUM 5.2 MEQ/L (3.5-5.1); SODIUM LEVEL 136 MEQ/L (136-145)
[2018-01-05] MEDS: TAMSULOSIN 0.4 MG CAP PO (21:04)
[2018-01-05] MEDS: SENOKOT S TAB PO (21:05)
[2018-01-05] MEDS: FAMOTIDINE 20 MG TAB PO (21:05)
[2018-01-05] MEDS: VITAMIN D 1,000 INTERNATIONAL UNITS TABLET PO (21:05)
[2018-01-05 23:59] LABS: BEDSIDE GLUCOSE 345 MG/DL (83-110)
[2018-01-06] MEDS: ACETAMINOPHEN 650MG ER TAB (TYLENOL ARTHRITIS) PO (05:07)
[2018-01-06] MEDS: SPIRONOLACTONE 25 MG TAB PO (05:07)
[2018-01-06] MEDS: FUROSEMIDE 40 MG TAB PO ×2 (05:07→12:16)
[2018-01-06] MEDS: MIDODRINE 5 MG TAB PO ×2 (05:07→11:30)
[2018-01-06] MEDS: GABAPENTIN 300 MG CAP PO (05:07)
[2018-01-06] MEDS: HEPARIN SOD (PORCINE) 5000 UNITS/ML VIAL SC (05:08)
[2018-01-06] MEDS: ACETAMINOPHEN 325 MG TAB PO (05:08)
[2018-01-06 06:20] LABS: HEMATOCRIT 35.8 % (36.0-47.0); HEMOGLOBIN 10.9 g/dl (12.0-15.5); MEAN CORPUSCULAR HEMOGLOBIN 26.7 pg (27.0-33.0); MEAN CORPUSCULAR HGB CONC 30.4 g/dl (32.0-36.5); MEAN CORPUSCULAR VOLUME 87.7 fl (80.0-96.0); PLATELET COUNT, AUTOMATED 285 10^3/uL (150-450); RED BLOOD COUNT 4.08 10^6/uL (4.00-5.40); RED CELL DISTRIBUTION WIDTH 15.3 % (11.5-14.5); WHITE BLOOD COUNT 10.8 10^3/uL (4.0-10.0)
[2018-01-06 06:40] LABS: ALBUMIN 2.7 GM/DL (3.2-5.2); ALBUMIN/GLOBULIN RATIO 0.75 (1.00-1.93); ALKALINE PHOSPHATASE 301 U/L (45-117); ALT/SGPT 72 U/L (12-78); ANION GAP 6 MEQ/L (8-16); AST/SGOT 46 U/L (7-37); BILIRUBIN,TOTAL 0.6 MG/DL (0.2-1.0); BLOOD UREA NITROGEN 15 MG/DL (7-18); CARBON DIOXIDE LEVEL 32 MEQ/L (21-32); CHLORIDE LEVEL 101 MEQ/L (98-107); CREATININE FOR GFR 0.85 MG/DL (0.55-1.30); GLOMERULAR FILTRATION RATE > 60.0 (>39); GLUCOSE, FASTING 62 MG/DL (70-100); POTASSIUM SERUM 3.4 MEQ/L (3.5-5.1); SODIUM LEVEL 139 MEQ/L (136-145); TOTAL PROTEIN 6.3 GM/DL (6.4-8.2)
[2018-01-06] MEDS: HumaLOG INSULIN (NovoLOG) PER UNIT SC ×2 (07:30→12:16)
[2018-01-06 07:54] LABS: BEDSIDE GLUCOSE 98 MG/DL (83-110)
[2018-01-06] MEDS: LEVEMIR (INSULIN DETEMIR) 1 UNITS/0.01ML SC (08:34)
[2018-01-06] MEDS: PANTOPRAZOLE 40MG INJ (PROTONIX) (C9113) IV (08:34)
[2018-01-06] MEDS: predniSONE 5 MG TAB PO (08:34)
[2018-01-06] MEDS: DULoxetine 30 MG CAP (CYMBALTA) PO (08:35)
[2018-01-06] MEDS: POTASSIUM CHLORIDE 10 MEQ SR TABLET PO (08:35)
[2018-01-06] MEDS: predniSONE 1 MG TAB PO (08:35)
[2018-01-06] MEDS: FERROUS SULFATE 325MG TAB PO (08:36)
[2018-01-06] MEDS: DIGOXIN 0.125 MG TAB PO (08:36)
[2018-01-06] MEDS: ASPIRIN 81 MG ENTERIC TAB PO (08:36)
[2018-01-06] MEDS: MULTIVITAMINS/MINERALS THERAP 1 TAB PO (08:36)
[2018-01-06] MEDS: CEFEPIME HCL 1 GM in D5W MINI-BAG PLUS 50 ML IV (10:00)
[2018-01-06 11:50] LABS: BEDSIDE GLUCOSE 236 MG/DL (83-110)
== END 2018-01-06 14:02 | DRG 853 ==
LOC: M ED INP 23:57 → M MSPAV 01-04 21:14 → M ED 19:31
PROC: 0T768DZ Dilation of Right Ureter with Intraluminal Device, Via Natural or Artificial Opening Endoscopic (ICD-10-PCS; principal; 2018-01-01 17:55)
DX: A41.51 Sepsis due to Escherichia coli [E. coli] (principal); I50.33 Acute on chronic diastolic (congestive) heart failure; N20.1 Calculus of ureter; N39.0 Urinary tract infection, site not specified; I47.2 Ventricular tachycardia; R65.20 Severe sepsis without septic shock; K21.9 Gastro-esophageal reflux disease without esophagitis; E55.9 Vitamin D deficiency, unspecified; E11.40 Type 2 diabetes mellitus with diabetic neuropathy, unspecified; D50.9 Iron deficiency anemia, unspecified; K59.00 Constipation, unspecified; M31.6 Other giant cell arteritis; K86.9 Disease of pancreas, unspecified; K76.9 Liver disease, unspecified; F39 Unspecified mood [affective] disorder; I11.0 Hypertensive heart disease with heart failure; Z79.82 Long term (current) use of aspirin; Z79.899 Other long term (current) drug therapy; Z79.4 Long term (current) use of insulin; B96.1 Klebsiella pneumoniae [K. pneumoniae] as the cause of diseases classified elsewhere; B95.5 Unspecified streptococcus as the cause of diseases classified elsewhere; Z95.0 Presence of cardiac pacemaker; G70.00 Myasthenia gravis without (acute) exacerbation; E78.5 Hyperlipidemia, unspecified; M19.90 Unspecified osteoarthritis, unspecified site; Z87.891 Personal history of nicotine dependence

== ENCOUNTER → 2018-01-17 | Outpatient (REF) | payer OTHER ==
[2018-01-17 11:36] LABS: BASO # 0.1 10^3/uL (0.0-0.2); BASO % 0.4 % (0.0-1.0); EOS % 0.1 % (0.0-3.0); HEMOGLOBIN 10.5 g/dl (12.0-15.5); LYMPH # 1.1 10^3/uL (1.5-4.5); LYMPH % 7.7 % (24.0-44.0); MEAN CORPUSCULAR HEMOGLOBIN 26.8 pg (27.0-33.0); MEAN CORPUSCULAR HGB CONC 31.8 g/dl (32.0-36.5); MEAN CORPUSCULAR VOLUME 84.2 fl (80.0-96.0); MONO # 1.1 10^3/uL (0.0-0.8); MONO % 8.1 % (0.0-5.0); NEUTROPHILS # 11.2 10^3/uL (1.8-7.7); NEUTROPHILS % 81.7 % (36.0-66.0); PLATELET COUNT, AUTOMATED 328 10^3/uL (150-450); RED BLOOD COUNT 3.92 10^6/uL (4.00-5.40); RED CELL DISTRIBUTION WIDTH 15.2 % (11.5-14.5); WHITE BLOOD COUNT 13.7 10^3/uL (4.0-10.0)
[2018-01-17 12:03] LABS: ALBUMIN 2.4 GM/DL (3.2-5.2); ALKALINE PHOSPHATASE 218 U/L (45-117); ALT/SGPT 51 U/L (12-78); ANION GAP 11 MEQ/L (8-16); AST/SGOT 37 U/L (7-37); BILIRUBIN,TOTAL 0.7 MG/DL (0.2-1.0); BLOOD UREA NITROGEN 14 MG/DL (7-18); CALCIUM LEVEL 8.3 MG/DL (8.8-10.2); CARBON DIOXIDE LEVEL 29 MEQ/L (21-32); CHLORIDE LEVEL 97 MEQ/L (98-107); CREATININE FOR GFR 0.92 MG/DL (0.55-1.30); GLOMERULAR FILTRATION RATE > 60.0 (>39); GLUCOSE, FASTING 126 MG/DL (70-100); POTASSIUM SERUM 3.9 MEQ/L (3.5-5.1); SODIUM LEVEL 137 MEQ/L (136-145); TOTAL PROTEIN 5.4 GM/DL (6.4-8.2)
[2018-01-17 14:23] LABS: APPEARANCE, URINE CLEAR (CLEAR); BACTERIA, URINE AUTO NEGATIVE (NEGATIVE); BILIRUBIN, URINE AUTO NEGATIVE (NEGATIVE); BLOOD, URINE BLOOD 2+ (NEGATIVE); COLOR, URINE YELLOW (YELLOW); GLUCOSE, URINE (UA) AUTO NEGATIVE (NEGATIVE); KETONE, URINE AUTO NEGATIVE (NEGATIVE); LEUKOCYTE ESTERASE, URINE AUTO 2+ (NEGATIVE); NITRITE, URINE AUTO NEGATIVE (NEGATIVE); PROTEIN, URINE AUTO NEGATIVE (NEGATIVE); RBC, URINE AUTO 11 /HPF (0-3); SPECIFIC GRAVITY URINE AUTO 1.009 (1.002-1.035); SQUAMOUS EPITHELIAL CELL UR AU 0 /HPF (0-6); UROBILINOGEN, URINE AUTO 0.2 mg/dL (0.0-2.0); WBC, URINE AUTO 17 /HPF (0-3); YEAST LIKE CELL URINE AUTO LARGE
== END ==
DX: R10.9 Unspecified abdominal pain (principal); R53.1 Weakness
CPT/HCPCS: 80053

== ENCOUNTER 2018-01-21 16:01 | Emergency (ER) | payer OTHER, MEDICAID ==
[2018-01-21] MEDS: ACETAMINOPHEN 325 MG TAB PO (17:43)
[2018-01-21] MEDS: NS 1,000 ML IV (17:58)
[2018-01-21 18:20] LABS: BASO % 0.3 % (0.0-1.0); HEMATOCRIT 31.5 % (36.0-47.0); HEMOGLOBIN 9.9 g/dl (12.0-15.5); LYMPH # 1.2 10^3/uL (1.5-4.5); LYMPH % 8.5 % (24.0-44.0); MEAN CORPUSCULAR HEMOGLOBIN 26.5 pg (27.0-33.0); MEAN CORPUSCULAR HGB CONC 31.4 g/dl (32.0-36.5); MEAN CORPUSCULAR VOLUME 84.5 fl (80.0-96.0); MONO # 0.6 10^3/uL (0.0-0.8); MONO % 4.1 % (0.0-5.0); NEUTROPHILS # 12.2 10^3/uL (1.8-7.7); NEUTROPHILS % 85.1 % (36.0-66.0); PLATELET COUNT, AUTOMATED 288 10^3/uL (150-450); RED BLOOD COUNT 3.73 10^6/uL (4.00-5.40); RED CELL DISTRIBUTION WIDTH 15.1 % (11.5-14.5); WHITE BLOOD COUNT 14.3 10^3/uL (4.0-10.0)
[2018-01-21 18:28] LABS: KETONE, URINE AUTO RFX NEGATIVE (NEGATIVE); MUCUS, URINE RFX SMALL (NEGATIVE); RBC, URINE AUTO RFX 3 /HPF (0-3); SPECIFIC GRAVITY UR AUTO RFX 1.008 (1.002-1.035); SQUAM EPITHELIAL CELL UR AURFX 0 /HPF (0-6)
[2018-01-21 18:42] LABS: PROTHROMBIN TIME 13.3 SECONDS (12.1-14.4)
[2018-01-21 18:50] LABS: ALBUMIN 2.4 GM/DL (3.2-5.2); ALBUMIN/GLOBULIN RATIO 0.75 (1.00-1.93); ALKALINE PHOSPHATASE 219 U/L (45-117); ALT/SGPT 43 U/L (12-78); ANION GAP 12 MEQ/L (8-16); AST/SGOT 35 U/L (7-37); BILIRUBIN,DIRECT 0.2 MG/DL (0.0-0.2); BILIRUBIN,TOTAL 0.5 MG/DL (0.2-1.0); BLOOD UREA NITROGEN 13 MG/DL (7-18); CALCIUM LEVEL 8.8 MG/DL (8.8-10.2); CARBON DIOXIDE LEVEL 27 MEQ/L (21-32); CHLORIDE LEVEL 95 MEQ/L (98-107); CPK CREATINE PHOSPHOKINASE 26 U/L (26-192); CREATININE FOR GFR 1.01 MG/DL (0.55-1.30); GLOMERULAR FILTRATION RATE 56.6 (>39); GLUCOSE, FASTING 424 MG/DL (70-100); LIPASE 129 U/L (73-393); MB/CK RELATIVE INDEX 4.23 (< OR =4); POTASSIUM SERUM 4.7 MEQ/L (3.5-5.1); SODIUM LEVEL 134 MEQ/L (136-145); TOTAL PROTEIN 5.6 GM/DL (6.4-8.2); TROPONIN I < 0.02 NG/ML (< 0.10)
[2018-01-21 18:52] LABS: LACTIC ACID SEPSIS PROTOCOL 2.5 MMOL/L (0.4-2.0)
[2018-01-21 18:54] LABS: LEUKOCYTE ESTERASE UR AUTO RFX 2+ (NEGATIVE); NITRITE, URINE AUTO RFX POSITIVE (NEGATIVE); WBC, URINE AUTO RFX 60 /HPF (0-3)
[2018-01-21 19:00] LABS: INFLUENZA A AMPLIFICATION NEGATIVE (NEGATIVE); INFLUENZA B AMPLIFICATION NEGATIVE (NEGATIVE)
[2018-01-21 19:11] LABS: BEDSIDE GLUCOSE 354 MG/DL (83-110)
[2018-01-21] MEDS: HumuLIN R (REGULAR) INSULIN (NovoLIN R) **100U/ML** PER UNIT IV (19:15)
[2018-01-21 19:32] LABS: VENOUS BASE EXCESS 8.6 (-2.0-2.0); VENOUS HCO3 33.1 MEQ/L (23.0-27.0); VENOUS O2 SATURATION 81.1 % (60.0-80.0); VENOUS PARTIAL PRESSURE CO2 45.9 mmHg (38.0-50.0); VENOUS PARTIAL PRESSURE O2 48.2 mmHg (30.0-50.0); VENOUS PH 7.476 UNITS (7.330-7.430); VENOUS TOTAL CO2 34.5 MEQ/L (24.0-28.0)
[2018-01-21 20:20] LABS: BEDSIDE GLUCOSE 281 MG/DL (83-110)
[2018-01-21] MEDS: cefTRIAXone SOD 1 GM in D5W MINI-BAG PLUS 50 ML IV (20:45)
== END 2018-01-21 21:25 | disposition home or self-care (01) ==
LOC: M ED 16:01
DX: E11.65 Type 2 diabetes mellitus with hyperglycemia (principal); N39.0 Urinary tract infection, site not specified; I10 Essential (primary) hypertension; I25.10 Atherosclerotic heart disease of native coronary artery without angina pectoris; K21.9 Gastro-esophageal reflux disease without esophagitis; Z79.899 Other long term (current) drug therapy; Z79.82 Long term (current) use of aspirin; Z79.4 Long term (current) use of insulin; Z88.8 Allergy status to other drugs, medicaments and biological substances; Z87.891 Personal history of nicotine dependence
CPT/HCPCS: J0696

== ENCOUNTER → 2018-01-21 | Outpatient (REF) | payer OTHER ==
[2018-01-21 13:37] LABS: HEMATOCRIT 34.3 % (36.0-47.0); HEMOGLOBIN 10.6 g/dl (12.0-15.5); MEAN CORPUSCULAR HEMOGLOBIN 26.5 pg (27.0-33.0); MEAN CORPUSCULAR HGB CONC 30.9 g/dl (32.0-36.5); MEAN CORPUSCULAR VOLUME 85.8 fl (80.0-96.0); PLATELET COUNT, AUTOMATED 302 10^3/uL (150-450); WHITE BLOOD COUNT 16.3 10^3/uL (4.0-10.0)
[2018-01-21 14:00] LABS: ANION GAP 9 MEQ/L (8-16); BLOOD UREA NITROGEN 12 MG/DL (7-18); CALCIUM LEVEL 8.6 MG/DL (8.8-10.2); CARBON DIOXIDE LEVEL 32 MEQ/L (21-32); CHLORIDE LEVEL 97 MEQ/L (98-107); CREATININE FOR GFR 1.01 MG/DL (0.55-1.30); GLOMERULAR FILTRATION RATE 56.6 (>39); GLUCOSE, FASTING 185 MG/DL (70-100); NT-PRO BNP 313 PG/ML (<450); POTASSIUM SERUM 4.2 MEQ/L (3.5-5.1); SODIUM LEVEL 138 MEQ/L (136-145)
[2018-01-21 14:10] LABS: ERYTHROCYTE SEDIMENTATION RATE 81 mm/hr (0-30)
== END ==
DX: R53.83 Other fatigue (principal)
CPT/HCPCS: 80048

== ENCOUNTER 2018-01-28 08:06 | Emergency (ER) | payer OTHER ==
[2018-01-28] MEDS: NITROGLYCERIN 0.4 MG SUBL TABLET SL ×2 (08:31→08:41)
[2018-01-28] MEDS: ASPIRIN 81 MG CHEW TABLET PO (08:31)
[2018-01-28 08:51] LABS: BASO # 0.1 10^3/uL (0.0-0.2); BASO % 0.3 % (0.0-1.0); EOS % 0.2 % (0.0-3.0); HEMOGLOBIN 10.3 g/dl (12.0-15.5); IMMATURE GRANULOCYTE % 1.6 % (0-3.0); LYMPH # 2.8 10^3/uL (1.5-4.5); LYMPH % 14.4 % (24.0-44.0); MEAN CORPUSCULAR HEMOGLOBIN 26.2 pg (27.0-33.0); MEAN CORPUSCULAR HGB CONC 31.2 g/dl (32.0-36.5); MONO # 1.3 10^3/uL (0.0-0.8); MONO % 6.8 % (0.0-5.0); NEUTROPHILS # 14.8 10^3/uL (1.8-7.7); NEUTROPHILS % 76.7 % (36.0-66.0); PLATELET COUNT, AUTOMATED 404 10^3/uL (150-450); RED BLOOD COUNT 3.93 10^6/uL (4.00-5.40); RED CELL DISTRIBUTION WIDTH 16.3 % (11.5-14.5); WHITE BLOOD COUNT 19.3 10^3/uL (4.0-10.0)
[2018-01-28 09:37] LABS: ALBUMIN 2.6 GM/DL (3.2-5.2); ALBUMIN/GLOBULIN RATIO 0.68 (1.00-1.93); ALKALINE PHOSPHATASE 187 U/L (45-117); ALT/SGPT 35 U/L (12-78); ANION GAP 10 MEQ/L (8-16); AST/SGOT 32 U/L (7-37); BILIRUBIN,DIRECT 0.2 MG/DL (0.0-0.2); BILIRUBIN,TOTAL 0.6 MG/DL (0.2-1.0); BLOOD UREA NITROGEN 19 MG/DL (7-18); CALCIUM LEVEL 9.2 MG/DL (8.8-10.2); CARBON DIOXIDE LEVEL 30 MEQ/L (21-32); CHLORIDE LEVEL 96 MEQ/L (98-107); CPK CREATINE PHOSPHOKINASE 31 U/L (26-192); CREATININE FOR GFR 1.19 MG/DL (0.55-1.30); FREE T4 0.93 NG/DL (0.76-1.46); GLOMERULAR FILTRATION RATE 46.8 (>39); GLUCOSE, FASTING 267 MG/DL (70-100); LIPASE 355 U/L (73-393); MB/CK RELATIVE INDEX 3.23 (< OR =4); POTASSIUM SERUM 4.2 MEQ/L (3.5-5.1); SODIUM LEVEL 136 MEQ/L (136-145); TOTAL PROTEIN 6.4 GM/DL (6.4-8.2); TROPONIN I 0.03 NG/ML (< 0.10)
[2018-01-28] MEDS ORDERED: ISOVUE-370 76% 100ML VIAL (Q9967) As Ordered (10:54)
[2018-01-28 10:57] LABS: DIGOXIN LEVEL 1.1 NG/ML (0.5-2.0)
[2018-01-28] MEDS: MORPHINE 4 MG/ML 1ML VIAL/SYRINGE (J2270) IV (11:47)
[2018-01-28 12:13] LABS: KETONE, URINE AUTO RFX NEGATIVE (NEGATIVE); MUCUS, URINE RFX SMALL (NEGATIVE); NITRITE, URINE AUTO RFX NEGATIVE (NEGATIVE); RBC, URINE AUTO RFX 5 /HPF (0-3); SPECIFIC GRAVITY UR AUTO RFX 1.012 (1.002-1.035); SQUAM EPITHELIAL CELL UR AURFX 0 /HPF (0-6)
[2018-01-28 12:38] LABS: LEUKOCYTE ESTERASE UR AUTO RFX 3+ (NEGATIVE); WBC, URINE AUTO RFX 50 /HPF (0-3)
[2018-01-28] MEDS: CIPROFLOXACIN 400 MG in APPROPRIATE DILUENT 1 EA IV (13:42)
[2018-01-28 15:07] LABS: CPK CREATINE PHOSPHOKINASE 29 U/L (26-192); MB/CK RELATIVE INDEX 3.79 (< OR =4); TROPONIN I < 0.02 NG/ML (< 0.10)
== END 2018-01-28 16:56 | disposition home or self-care (01) ==
LOC: M ED 08:06
DX: N39.0 Urinary tract infection, site not specified (principal); R07.9 Chest pain, unspecified; R94.31 Abnormal electrocardiogram [ECG] [EKG]; Z95.0 Presence of cardiac pacemaker; I51.7 Cardiomegaly; I50.9 Heart failure, unspecified; E11.9 Type 2 diabetes mellitus without complications; I10 Essential (primary) hypertension; E78.5 Hyperlipidemia, unspecified; M19.90 Unspecified osteoarthritis, unspecified site; G70.00 Myasthenia gravis without (acute) exacerbation; Z87.891 Personal history of nicotine dependence; Z79.82 Long term (current) use of aspirin; Z79.4 Long term (current) use of insulin; Z79.899 Other long term (current) drug therapy; Z88.8 Allergy status to other drugs, medicaments and biological substances
CPT/HCPCS: J2270

== ENCOUNTER → 2018-01-29 | Outpatient (REF) | payer OTHER ==
[2018-01-29 13:24] LABS: HEMOGLOBIN 11.6 g/dl (12.0-15.5); MEAN CORPUSCULAR HEMOGLOBIN 26.1 pg (27.0-33.0); MEAN CORPUSCULAR HGB CONC 30.5 g/dl (32.0-36.5); MEAN CORPUSCULAR VOLUME 85.4 fl (80.0-96.0); PLATELET COUNT, AUTOMATED 430 10^3/uL (150-450); RED BLOOD COUNT 4.45 10^6/uL (4.00-5.40); RED CELL DISTRIBUTION WIDTH 16.5 % (11.5-14.5); WHITE BLOOD COUNT 15.4 10^3/uL (4.0-10.0)
[2018-01-29 14:07] LABS: ANION GAP 12 MEQ/L (8-16); BLOOD UREA NITROGEN 14 MG/DL (7-18); CALCIUM LEVEL 9.3 MG/DL (8.8-10.2); CARBON DIOXIDE LEVEL 29 MEQ/L (21-32); CHLORIDE LEVEL 89 MEQ/L (98-107); CREATININE FOR GFR 1.45 MG/DL (0.55-1.30); GLOMERULAR FILTRATION RATE 37.3 (>39); GLUCOSE, FASTING 461 MG/DL (70-100); NT-PRO BNP 663 PG/ML (<450); POTASSIUM SERUM 3.8 MEQ/L (3.5-5.1); SODIUM LEVEL 130 MEQ/L (136-145)
== END ==
DX: I50.9 Heart failure, unspecified (principal)
CPT/HCPCS: 80048

== ENCOUNTER → 2018-02-05 | Outpatient (REF) ==
[2018-02-05 10:42] LABS: BASO # 0.1 10^3/uL (0.0-0.2); BASO % 0.4 % (0.0-1.0); EOS # 0.1 10^3/uL (0.0-0.50); EOS % 0.3 % (0.0-3.0); HEMATOCRIT 38.3 % (36.0-47.0); HEMOGLOBIN 11.5 g/dl (12.0-15.5); IMMATURE GRANULOCYTE % 2.3 % (0-3.0); LYMPH # 2.9 10^3/uL (1.5-4.5); LYMPH % 16.6 % (24.0-44.0); MEAN CORPUSCULAR HEMOGLOBIN 25.6 pg (27.0-33.0); MEAN CORPUSCULAR VOLUME 85.1 fl (80.0-96.0); MONO # 1.2 10^3/uL (0.0-0.8); MONO % 6.9 % (0.0-5.0); NEUTROPHILS # 12.7 10^3/uL (1.8-7.7); NEUTROPHILS % 73.5 % (36.0-66.0); PLATELET COUNT, AUTOMATED 486 10^3/uL (150-450); RED CELL DISTRIBUTION WIDTH 16.6 % (11.5-14.5); WHITE BLOOD COUNT 17.2 10^3/uL (4.0-10.0)
[2018-02-05 11:04] LABS: ALBUMIN 3.2 GM/DL (3.2-5.2); ALBUMIN/GLOBULIN RATIO 0.86 (1.00-1.93); ALKALINE PHOSPHATASE 189 U/L (45-117); ALT/SGPT 42 U/L (12-78); ANION GAP 12 MEQ/L (8-16); AST/SGOT 44 U/L (7-37); BILIRUBIN,TOTAL 0.6 MG/DL (0.2-1.0); BLOOD UREA NITROGEN 22 MG/DL (7-18); CALCIUM LEVEL 9.8 MG/DL (8.8-10.2); CARBON DIOXIDE LEVEL 31 MEQ/L (21-32); CHLORIDE LEVEL 90 MEQ/L (98-107); CREATININE FOR GFR 1.15 MG/DL (0.55-1.30); GLOMERULAR FILTRATION RATE 48.7 (>39); GLUCOSE, FASTING 173 MG/DL (70-100); LDH LACTATE DEHYDROGENASE 355 U/L (84-246); NT-PRO BNP 609 PG/ML (<450); POTASSIUM SERUM 4.6 MEQ/L (3.5-5.1); SODIUM LEVEL 133 MEQ/L (136-145); TOTAL PROTEIN 6.9 GM/DL (6.4-8.2)
[2018-02-05 11:13] LABS: ERYTHROCYTE SEDIMENTATION RATE 68 mm/hr (0-30)
== END ==
DX: D64.9 Anemia, unspecified (principal)

== ENCOUNTER → 2018-02-06 | Outpatient (REF) | payer OTHER, MEDICAID ==
[2018-02-06 12:51] LABS: HEMATOCRIT 35.8 % (36.0-47.0); MEAN CORPUSCULAR HEMOGLOBIN 25.5 pg (27.0-33.0); MEAN CORPUSCULAR HGB CONC 30.7 g/dl (32.0-36.5); MEAN CORPUSCULAR VOLUME 83.1 fl (80.0-96.0); PLATELET COUNT, AUTOMATED 454 10^3/uL (150-450); RED BLOOD COUNT 4.31 10^6/uL (4.00-5.40); RED CELL DISTRIBUTION WIDTH 16.4 % (11.5-14.5); WHITE BLOOD COUNT 15.1 10^3/uL (4.0-10.0)
[2018-02-06 13:00] LABS: ANION GAP 11 MEQ/L (8-16); BLOOD UREA NITROGEN 23 MG/DL (7-18); CARBON DIOXIDE LEVEL 30 MEQ/L (21-32); CHLORIDE LEVEL 94 MEQ/L (98-107); CREATININE FOR GFR 1.23 MG/DL (0.55-1.30); GLOMERULAR FILTRATION RATE 45.1 (>39); GLUCOSE, FASTING 157 MG/DL (70-100); POTASSIUM SERUM 4.3 MEQ/L (3.5-5.1); SODIUM LEVEL 135 MEQ/L (136-145)
== END ==
DX: R53.1 Weakness (principal)
CPT/HCPCS: 80048

== ENCOUNTER → 2018-02-12 | Outpatient (REF) | payer OTHER, MEDICAID ==
[2018-02-12 09:44] LABS: HEMATOCRIT 35.1 % (36.0-47.0); HEMOGLOBIN 10.9 g/dl (12.0-15.5); MEAN CORPUSCULAR HEMOGLOBIN 25.2 pg (27.0-33.0); MEAN CORPUSCULAR HGB CONC 31.1 g/dl (32.0-36.5); MEAN CORPUSCULAR VOLUME 81.3 fl (80.0-96.0); PLATELET COUNT, AUTOMATED 409 10^3/uL (150-450); RED BLOOD COUNT 4.32 10^6/uL (4.00-5.40); RED CELL DISTRIBUTION WIDTH 16.4 % (11.5-14.5); WHITE BLOOD COUNT 18.7 10^3/uL (4.0-10.0)
[2018-02-12 10:28] LABS: ANION GAP 10 MEQ/L (8-16); BLOOD UREA NITROGEN 26 MG/DL (7-18); CALCIUM LEVEL 9.2 MG/DL (8.8-10.2); CARBON DIOXIDE LEVEL 31 MEQ/L (21-32); CHLORIDE LEVEL 90 MEQ/L (98-107); CREATININE FOR GFR 1.21 MG/DL (0.55-1.30); DIGOXIN LEVEL 1.8 NG/ML (0.5-2.0); GLOMERULAR FILTRATION RATE 45.9 (>39); GLUCOSE, FASTING 168 MG/DL (70-100); POTASSIUM SERUM 4.2 MEQ/L (3.5-5.1); SODIUM LEVEL 131 MEQ/L (136-145)
[2018-02-12 10:37] LABS: ERYTHROCYTE SEDIMENTATION RATE 81 mm/hr (0-30)
[2018-02-12 10:46] LABS: ESTIMATED AVERAGE GLUCOSE 169 MG/DL (60-110); HEMOGLOBIN A1c 7.5 %
== END ==
DX: I50.9 Heart failure, unspecified (principal)
CPT/HCPCS: 80162

== ENCOUNTER → 2018-02-20 | Outpatient (REF) | payer OTHER, MEDICAID ==
[2018-02-20 09:29] LABS: HEMATOCRIT 34.6 % (36.0-47.0); HEMOGLOBIN 10.5 g/dl (12.0-15.5); MEAN CORPUSCULAR HEMOGLOBIN 24.9 pg (27.0-33.0); MEAN CORPUSCULAR HGB CONC 30.3 g/dl (32.0-36.5); PLATELET COUNT, AUTOMATED 346 10^3/uL (150-450); RED BLOOD COUNT 4.22 10^6/uL (4.00-5.40); RED CELL DISTRIBUTION WIDTH 16.8 % (11.5-14.5); WHITE BLOOD COUNT 18.2 10^3/uL (4.0-10.0)
[2018-02-20 09:41] LABS: INR 0.98; PROTHROMBIN TIME 13.1 SECONDS (12.1-14.4)
[2018-02-20 09:42] LABS: PARTIAL THROMBOPLASTIN TIME 28.8 SECONDS (25.4-37.6)
[2018-02-20 09:55] LABS: ANION GAP 10 MEQ/L (8-16); BLOOD UREA NITROGEN 25 MG/DL (7-18); CARBON DIOXIDE LEVEL 31 MEQ/L (21-32); CHLORIDE LEVEL 93 MEQ/L (98-107); CREATININE FOR GFR 1.26 MG/DL (0.55-1.30); GLOMERULAR FILTRATION RATE 43.8 (>39); GLUCOSE, FASTING 197 MG/DL (70-100); NT-PRO BNP 964 PG/ML (<450); POTASSIUM SERUM 4.4 MEQ/L (3.5-5.1); SODIUM LEVEL 134 MEQ/L (136-145)
[2018-02-20 14:26] LABS: AMORPHOUS SEDIMENT LARGE (NEGATIVE); APPEARANCE, URINE HAZY (CLEAR); BACTERIA, URINE AUTO 2+ (NEGATIVE); BILIRUBIN, URINE AUTO NEGATIVE (NEGATIVE); BLOOD, URINE BLOOD 1+ (NEGATIVE); COLOR, URINE YELLOW (YELLOW); GLUCOSE, URINE (UA) AUTO NEGATIVE (NEGATIVE); KETONE, URINE AUTO NEGATIVE (NEGATIVE); LEUKOCYTE ESTERASE, URINE AUTO 3+ (NEGATIVE); NITRITE, URINE AUTO NEGATIVE (NEGATIVE); PROTEIN, URINE AUTO NEGATIVE (NEGATIVE); RBC, URINE AUTO 4 /HPF (0-3); SPECIFIC GRAVITY URINE AUTO 1.006 (1.002-1.035); SQUAMOUS EPITHELIAL CELL UR AU 0 /HPF (0-6); UROBILINOGEN, URINE AUTO 0.2 mg/dL (0.0-2.0); WBC, URINE AUTO 30 /HPF (0-3)
== END ==
DX: R60.9 Edema, unspecified (principal)
CPT/HCPCS: 80048

== ENCOUNTER → 2018-02-22 | Outpatient (CLI) | payer MEDICARE, OTHER, MEDICAID | LOC: M LAB 14:49 | DX: Z01.818 Encounter for other preprocedural examination (principal); Z53.8 Procedure and treatment not carried out for other reasons ==

== ENCOUNTER → 2018-02-22 | Outpatient (REF) | payer MEDICARE, MEDICAID, OTHER ==
[2018-02-22 11:00] LABS: ERYTHROCYTE SEDIMENTATION RATE 63 mm/hr (0-30)
[2018-02-22 11:05] LABS: ANION GAP 12 MEQ/L (8-16); BLOOD UREA NITROGEN 26 MG/DL (7-18); CALCIUM LEVEL 9.5 MG/DL (8.8-10.2); CARBON DIOXIDE LEVEL 31 MEQ/L (21-32); CHLORIDE LEVEL 87 MEQ/L (98-107); CREATININE FOR GFR 1.64 MG/DL (0.55-1.30); GLOMERULAR FILTRATION RATE 32.3 (>39); GLUCOSE, FASTING 195 MG/DL (70-100); POTASSIUM SERUM 4.7 MEQ/L (3.5-5.1); SODIUM LEVEL 130 MEQ/L (136-145)
== END ==
DX: I50.9 Heart failure, unspecified (principal)
CPT/HCPCS: 71046

== ENCOUNTER → 2018-02-26 | Outpatient (REF) ==
[2018-02-26 10:15] LABS: BASO % 0.2 % (0.0-1.0); EOS # 0.1 10^3/uL (0.0-0.50); EOS % 0.4 % (0.0-3.0); HEMATOCRIT 36.2 % (36.0-47.0); IMMATURE GRANULOCYTE % 1.8 % (0-3.0); LYMPH # 2.1 10^3/uL (1.5-4.5); LYMPH % 11.6 % (24.0-44.0); MEAN CORPUSCULAR HEMOGLOBIN 24.6 pg (27.0-33.0); MEAN CORPUSCULAR HGB CONC 30.4 g/dl (32.0-36.5); MEAN CORPUSCULAR VOLUME 80.8 fl (80.0-96.0); MONO # 0.8 10^3/uL (0.0-0.8); MONO % 4.6 % (0.0-5.0); NEUTROPHILS # 14.7 10^3/uL (1.8-7.7); NEUTROPHILS % 81.4 % (36.0-66.0); PLATELET COUNT, AUTOMATED 417 10^3/uL (150-450); RED BLOOD COUNT 4.48 10^6/uL (4.00-5.40); RED CELL DISTRIBUTION WIDTH 17.1 % (11.5-14.5); WHITE BLOOD COUNT 18.1 10^3/uL (4.0-10.0)
[2018-02-26 10:31] LABS: ALBUMIN/GLOBULIN RATIO 0.86 (1.00-1.93); ALKALINE PHOSPHATASE 168 U/L (45-117); ALT/SGPT 30 U/L (12-78); ANION GAP 11 MEQ/L (8-16); AST/SGOT 27 U/L (7-37); BILIRUBIN,TOTAL 0.5 MG/DL (0.2-1.0); BLOOD UREA NITROGEN 38 MG/DL (7-18); C REACTIVE PROTEIN QUANTITATIV 4.67 MG/DL (0.00-0.30); CALCIUM LEVEL 9.1 MG/DL (8.8-10.2); CARBON DIOXIDE LEVEL 31 MEQ/L (21-32); CHLORIDE LEVEL 91 MEQ/L (98-107); CREATININE FOR GFR 1.49 MG/DL (0.55-1.30); GLOMERULAR FILTRATION RATE 36.1 (>39); GLUCOSE, FASTING 115 MG/DL (70-100); LDH LACTATE DEHYDROGENASE 336 U/L (84-246); POTASSIUM SERUM 4.5 MEQ/L (3.5-5.1); SODIUM LEVEL 133 MEQ/L (136-145); TOTAL PROTEIN 6.5 GM/DL (6.4-8.2)
[2018-02-26 10:43] LABS: ERYTHROCYTE SEDIMENTATION RATE 76 mm/hr (0-30)
== END ==
DX: M31.6 Other giant cell arteritis (principal)

== ENCOUNTER 2018-02-27 10:29 | Day surgery (SDC) | payer MEDICARE, MEDICAID, OTHER ==
[~2018-02-27 10:29] MED LIST changes: -ACET50TAOT PO; -AMIT50TA PO; -ASPI1TAB PO; -AZIT500T2 PO; -B-COTAB10 PO; -CEFD1CAP8 PO; -CITA40TA4 PO; -FOLI800T PO; -INSULANT SC; -ISOS30TA4 PO; -LASI40TA PO; +LIDOCAINE 1% MDV 20ML VIAL SQ; -MEST60TA PO; -METF-415 PO; -MIRA3350 PO; -NORV5TAB PO; -NOVO70IN SC; -NOVOINJ12 SC; -OMEP40CA2 PO; -OXYB5TA PO; -PRED50TA PO; -SIMV20TA2 PO; -VITA-122 PO; -VITMTA PO; -duoneb NEB
[2018-02-27 11:08] LABS: BEDSIDE GLUCOSE 101 MG/DL (83-110)
[2018-02-27] MEDS: LR 1,000 ML IV (11:32)
[2018-02-27] MEDS ORDERED: VANCOMYCIN 1000 MG/20 ML VIAL (J3370) As Ordered (13:06)
[2018-02-27] MEDS ORDERED: PROPOFOL 200 MG/20 ML VIAL As Ordered ×3 (14:00)
[2018-02-27] MEDS ORDERED: MIDAZOLAM INJ 2 MG/2 ML VIAL (J2250) As Ordered (14:00)
[2018-02-27] MEDS ORDERED: LIDOCAINE 2% INJ 100 MG/5 ML SDV (FOR ANES.) As Ordered (14:00)
[2018-02-27] MEDS ORDERED: ONDANSETRON 4MG/2ML VIAL (J2405) As Ordered (14:00)
[2018-02-27] MEDS ORDERED: fentaNYL 100 MCG/2 ML INJECTION (J3010) As Ordered (14:01)
[2018-02-27] MEDS: LIDOCAINE 2% 5ML JELLY UROJET As Ordered (14:33)
[2018-02-27] MEDS: VANCOMYCIN HCL 1,000 MG, VIAL MATE ADAPTER 1 EACH in D5W 250 ML IV (14:41)
[2018-02-27] MEDS ORDERED: KETAMINE HCL 200 MG/20 ML VIAL As Ordered (15:16)
[2018-02-27] MEDS: CONRAY-60 60% 50ML VIAL (Q9961) As Ordered (15:30)
[2018-02-27] MEDS: GENTAMICIN 80 MG in APPROPRIATE DILUENT 1 EA IV (15:57)
[2018-03-11 10:12] LABS: CA Oxalate Dihy 65 % (.); Ca Ox Monohydrate 30 % (.)
== END 2018-02-27 17:10 | disposition home or self-care (01) ==
LOC: M SDC 17:10
DX: N20.1 Calculus of ureter (principal); N20.0 Calculus of kidney; I10 Essential (primary) hypertension; E78.5 Hyperlipidemia, unspecified; E11.9 Type 2 diabetes mellitus without complications; Z79.84 Long term (current) use of oral hypoglycemic drugs; Z79.4 Long term (current) use of insulin; Z79.52 Long term (current) use of systemic steroids; R07.9 Chest pain, unspecified; Z95.0 Presence of cardiac pacemaker; Z79.82 Long term (current) use of aspirin; G47.30 Sleep apnea, unspecified; Z79.899 Other long term (current) drug therapy
CPT/HCPCS: 52352

== ENCOUNTER → 2018-03-04 | Outpatient (REF) ==
[2018-03-04 10:09] LABS: HEMATOCRIT 34.1 % (36.0-47.0); HEMOGLOBIN 10.5 g/dl (12.0-15.5); MEAN CORPUSCULAR HEMOGLOBIN 25.2 pg (27.0-33.0); MEAN CORPUSCULAR HGB CONC 30.8 g/dl (32.0-36.5); MEAN CORPUSCULAR VOLUME 81.8 fl (80.0-96.0); PLATELET COUNT, AUTOMATED 357 10^3/uL (150-450); RED BLOOD COUNT 4.17 10^6/uL (4.00-5.40); RED CELL DISTRIBUTION WIDTH 18.1 % (11.5-14.5); WHITE BLOOD COUNT 15.9 10^3/uL (4.0-10.0)
[2018-03-04 10:32] LABS: ERYTHROCYTE SEDIMENTATION RATE 36 mm/hr (0-30)
[2018-03-04 10:51] LABS: ALBUMIN 2.9 GM/DL (3.2-5.2); ALBUMIN/GLOBULIN RATIO 0.94 (1.00-1.93); ALKALINE PHOSPHATASE 118 U/L (45-117); ALT/SGPT 24 U/L (12-78); ANION GAP 11 MEQ/L (8-16); AST/SGOT 35 U/L (7-37); BILIRUBIN,TOTAL 0.7 MG/DL (0.2-1.0); BLOOD UREA NITROGEN 21 MG/DL (7-18); C REACTIVE PROTEIN QUANTITATIV 7.65 MG/DL (0.00-0.30); CARBON DIOXIDE LEVEL 30 MEQ/L (21-32); CHLORIDE LEVEL 94 MEQ/L (98-107); GLOMERULAR FILTRATION RATE 57.2 (>39); GLUCOSE, FASTING 72 MG/DL (70-100); NT-PRO BNP 983 PG/ML (<450); POTASSIUM SERUM 4.6 MEQ/L (3.5-5.1); SODIUM LEVEL 135 MEQ/L (136-145)
== END ==
DX: I11.0 Hypertensive heart disease with heart failure (principal); I50.9 Heart failure, unspecified; N18.9 Chronic kidney disease, unspecified

== ENCOUNTER → 2018-03-13 | Outpatient (REF) | payer MEDICARE, MEDICAID ==
[~2018-03-13] MED LIST changes: +ACET1TAB55 PO; +ACET500T15 PO; +AFRI0.052; +AMIT50TA PO; +AMLO10TA4 PO; +ASPI1TAB PO; +ASPI81TAEC PO; +ATOR1TAB21 PO; +AZIT500T2 PO; +B-COTAB10 PO; +BENG1CRE TOP; +CEFD1CAP8 PO; +CEFD300CAP PO; +CEPH500C PO; +CETI10TA PO; +CICL8SOL3 TOP; +CIPR-249 PO; +CITA40TA4 PO; +COLA100C5 PO; +DAPS10TA PO; +DAPS25TA2 PO; +DIGO0.12 PO; +DOXY100C37 PO; +DULC10SU2 PR; +DULO1CAP3 PO; +ENEMENE16 PR; +FERR1TAB8 PO; +FERR325T3 PO; +FLOM0.4C39 PO; +FOLI800T PO; +GABA-845 PO; +GABA600T PO; +GLUC1KIT IM; +GLUCLIQ7 PO; +HYDR-3713 PO; +INSUDET SC; +INSUH10VL SC; +INSULANT SC; +ISOS30TA4 PO; +KEFL500C17 PO; +LANTINJ4 SC; +LASI40TA PO; -LIDOCAINE 1% MDV 20ML VIAL SQ; +MACR100C43 PO; +MEST60TA PO; +METF-415 PO; +METF-699 PO; +METF-877 PO; +METO1TAB87 PO; +METO25TA PO; +METO37.5 PO; +MIDO10TA PO; +MILK12002 PO; +MIRA3350 PO; +NORV5TAB PO; +NOVO1INJ4 SC; +NOVOINJ12 SC; +OMEP40CA2 PO; +OXYB5TAB10 PO; +OXYC1SOL3 PO; +PANT40TA3 PO; +PRED10TA2 PO; +PRED1TABL PO; +PRED50TA PO; +RANI300T PO; +SALI0.6528; +SENN8.6T7 PO; +SIMV20TA2 PO; +SPIR-10 PO; +TORS20TA2 PO; +VANC250C2 IV; +VITA-122 PO; +VITMTA PO; +duoneb NEB
== END ==
PROVIDERS: ATTEND Internal Medicine
DX: I50.9 Heart failure, unspecified (principal)

== ENCOUNTER → 2018-03-20 | Outpatient (REF) | payer MEDICARE, MEDICAID ==
[2018-03-20 11:40] LABS: HEMATOCRIT 34.4 % (36.0-47.0); HEMOGLOBIN 10.6 g/dl (12.0-15.5); MEAN CORPUSCULAR HEMOGLOBIN 25.2 pg (27.0-33.0); MEAN CORPUSCULAR HGB CONC 30.8 g/dl (32.0-36.5); MEAN CORPUSCULAR VOLUME 81.7 fl (80.0-96.0); PLATELET COUNT, AUTOMATED 329 10^3/uL (150-450); RED BLOOD COUNT 4.21 10^6/uL (4.00-5.40); WHITE BLOOD COUNT 24.2 10^3/uL (4.0-10.0)
[2018-03-20 11:57] LABS: ANISOCYTOSIS 2+; LYMPHOCYTES 7 % (16-52); MONOCYTES 2 % (0-8); NEUTROPHILS 90 % (35-75); PLATELET ESTIMATE NORMAL (NORMAL)
[2018-03-20 11:58] LABS: POLYCHROMASIA 1+
[2018-03-20 12:00] LABS: ERYTHROCYTE SEDIMENTATION RATE 45 mm/hr (0-30)
[2018-03-20 12:26] LABS: ALBUMIN 3.1 GM/DL (3.2-5.2); BILIRUBIN,TOTAL 0.7 MG/DL (0.2-1.0); C REACTIVE PROTEIN QUANTITATIV 8.36 MG/DL (0.00-0.30); CALCIUM LEVEL 9.5 MG/DL (8.8-10.2); CREATININE FOR GFR 1.2 MG/DL (0.55-1.30); GLOMERULAR FILTRATION RATE 46.4 (>39); POTASSIUM SERUM 4.9 MEQ/L (3.5-5.1); TOTAL PROTEIN 6.2 GM/DL (6.4-8.2)
== END ==
PROVIDERS: ATTEND Internal Medicine
DX: M31.6 Other giant cell arteritis (principal)

== ENCOUNTER → 2018-03-27 | Outpatient (CLI) | payer MEDICARE, MEDICAID ==
[~2018-03-27] MED LIST changes: -AMLO10TA4 PO; +AMLO10TA5 PO; -ENEMENE16 PR; +ENEMENE4 PR; -GABA600T PO; +GABA600T4 PO; +GASTROGRAFIN SOLUTION 30ML (Q9963) As Ordered ONE; +ISOVUE-370 76% 100ML VIAL (Q9967) As Ordered ONE; -LASI40TA PO; +LASI40TA9 PO; +MILK120011 PO; -MILK12002 PO
--- NOTE | 2018-03-27 16:21 | REP ---
CT abdomen and pelvis without IV or oral contrast: History: Pancreatic cyst. Attention liver and pancreas. Comparison CT study is from January 21, 2018 and October 28, 2015. CT findings: Preliminary digital brim cutter radiograph demonstrates the patient's hands overlying the abdomen. Moderate amount of stool is seen. On axial CT images. There is no evidence of infiltrate in the lung bases. No pleural effusion or abdominal ascites is seen. Pacemaker leads are seen in the right heart. No adrenal lesion is seen. There are 1-2 granulomatous calcifications in the spleen. No focal liver lesion is visible. There is an accessory splenule adjacent to the tail of the pancreas. Within the tail of the pancreas, there is an oval-shaped low density lesion consistent with a cyst measuring 2.6 by 2.1 by 2.3 cm. This is slightly larger than it was on January 21, 2018. There are two cysts along the inferior margin of the pancreatic tail more anteromedially. These measure 17 and 28 mm in greatest dimension respectively. They are considerably larger than on the prior CT study from January 21, 2018 and new from November 06, 2015. There are small stable cysts along the medial lateral aspect the pancreatic head which are unchanged from December 31, 2017 and January 21, 2018. These measure 13 and 15 mm in diameter. No evidence of peripancreatic edema or adenopathy. There are intrarenal calculi in the left kidney without hydronephrosis. No renal mass lesion is seen. Moderate colonic stool is present throughout. Urinary bladder is unremarkable. The uterus is intact. There is sigmoid colon diverticulosis. There is a little fat streaking adjacent to the sigmoid colon and I cannot exclude diverticulitis here. This is adjacent to the bladder dome. Impression: There are multiple small pancreatic cysts. There are three cysts in the pancreatic tail which are a little larger than on the previous CT study. There are two cystic area in the pancreatic head which are unchanged in size. Sigmoid colon diverticulosis. Possible diverticulitis just adjacent to the dome of the bladder. No liver lesions seen on today's CT study. The patient was not able to place her arms out of the field of view. Electronically Signed by Yovani Galeas MD 03/27/2018 05:56 P
== END ==
LOC: M RAD 12:31
PROVIDERS: ATTEND Nurse Practitioner Adult Health
DX: K86.2 Cyst of pancreas (principal); K57.30 Diverticulosis of large intestine without perforation or abscess without bleeding

== ENCOUNTER → 2018-04-01 | Outpatient (REF) | payer MEDICARE, MEDICAID ==
[~2018-04-01] MED LIST changes: -GASTROGRAFIN SOLUTION 30ML (Q9963) As Ordered ONE; -ISOVUE-370 76% 100ML VIAL (Q9967) As Ordered ONE
[2018-04-01 10:06] LABS: ALBUMIN 3.1 GM/DL (3.2-5.2); ALT/SGPT 25 U/L (12-78); BILIRUBIN,TOTAL 0.6 MG/DL (0.2-1.0); BLOOD UREA NITROGEN 25 MG/DL (7-18); CALCIUM LEVEL 9.8 MG/DL (8.8-10.2); CARBON DIOXIDE LEVEL 32 MEQ/L (21-32); CHLORIDE LEVEL 92 MEQ/L (98-107); CREATININE FOR GFR 0.94 MG/DL (0.55-1.30); GLOMERULAR FILTRATION RATE > 60.0 (>39); GLUCOSE, FASTING 144 MG/DL (70-100); POTASSIUM SERUM 4.3 MEQ/L (3.5-5.1); SODIUM LEVEL 134 MEQ/L (136-145); TOTAL PROTEIN 6.2 GM/DL (6.4-8.2)
[2018-04-01 10:32] LABS: HEMATOCRIT 32.6 % (36.0-47.0); HEMOGLOBIN 10.3 g/dl (12.0-15.5); MEAN CORPUSCULAR HEMOGLOBIN 25.9 pg (27.0-33.0); MEAN CORPUSCULAR HGB CONC 31.6 g/dl (32.0-36.5); MEAN CORPUSCULAR VOLUME 81.9 fl (80.0-96.0); PLATELET COUNT, AUTOMATED 284 10^3/uL (150-450); RED BLOOD COUNT 3.98 10^6/uL (4.00-5.40); WHITE BLOOD COUNT 18.3 10^3/uL (4.0-10.0)
== END ==
PROVIDERS: ATTEND Internal Medicine
DX: R13.10 Dysphagia, unspecified (principal); Z79.899 Other long term (current) drug therapy

== ENCOUNTER → 2018-04-04 | Outpatient (REF) ==
[2018-04-04 13:02] LABS: HEMATOCRIT 29.8 % (36.0-47.0); HEMOGLOBIN 9.3 g/dl (12.0-15.5); MEAN CORPUSCULAR HEMOGLOBIN 25.7 pg (27.0-33.0); MEAN CORPUSCULAR HGB CONC 31.2 g/dl (32.0-36.5); MEAN CORPUSCULAR VOLUME 82.3 fl (80.0-96.0); PLATELET COUNT, AUTOMATED 248 10^3/uL (150-450); RED BLOOD COUNT 3.62 10^6/uL (4.00-5.40); WHITE BLOOD COUNT 15.8 10^3/uL (4.0-10.0)
[2018-04-04 13:27] LABS: ALBUMIN 2.6 GM/DL (3.2-5.2); BILIRUBIN,TOTAL 0.7 MG/DL (0.2-1.0); CALCIUM LEVEL 8.9 MG/DL (8.8-10.2); CREATININE FOR GFR 1.24 MG/DL (0.55-1.30); GLOMERULAR FILTRATION RATE 44.7 (>39); POTASSIUM SERUM 4.5 MEQ/L (3.5-5.1); TOTAL PROTEIN 5.5 GM/DL (6.4-8.2)
== END ==
PROVIDERS: ATTEND Internal Medicine
DX: R41.82 Altered mental status, unspecified (principal); D72.829 Elevated white blood cell count, unspecified